=== PATIENT | female | born 1975 | race Caucasian/White ===

== ENCOUNTER 2017-09-27 08:30 | Outpatient (RCR) | payer BC, OTHER, SELFPAY | END 2017-10-14 11:35 | disposition home or self-care (01) | LOC: PT 08:30 | PROVIDERS: PCP Family Medicine; Visit Provider Orthopaedic Surgery | DX: M25.511 Pain in right shoulder (principal); M75.21 Bicipital tendinitis, right shoulder | CPT/HCPCS: 97033; 97035; 97110; 97163 ==

== ENCOUNTER → 2018-01-11 10:51 | Outpatient (CLI) | payer BC, OTHER, SELFPAY ==
[2018-01-11 10:54] LABS: Adenovirus,PCR Not Detected (NotDetected); Bordetella Pertussis Not Detected (NotDetected); Chlamydophila Pneumoniae, PCR Not Detected (NotDetected); Coronavirus 229E Not Detected (NotDetected); Coronavirus NL63 Not Detected (NotDetected); Coronavirus OC43 Not Detected (NotDetected); Coronovirus HKU1,PCR Not Detected (NotDetected); Human Metapneumovirus Not Detected (NotDetected); Influenza A, PCR Not Detected (NotDetected); Influenza AH1, 2009 Not Detected (NotDetected); Influenza AH1, PCR Not Detected (NotDetected); Influenza AH3,PCR Not Detected (NotDetected); Influenza B, PCR Not Detected (NotDetected); Mycoplasma Pneumoniae, PCR Not Detected (NotDetected); Parainfluenza 1, PCR Not Detected (NotDetected); Parainfluenza 2, PCR Not Detected (NotDetected); Parainfluenza 3, PCR Not Detected (NotDetected); Parainfluenza 4, PCR Not Detected (NotDetected); Respiratory Syncytial Virus Not Detected (NotDetected); Rhinovirus/Enterovirus Not Detected (NotDetected)
== END ==
PROVIDERS: PCP Physician Assistant; Visit Provider Physician Assistant
DX: R50.9 Fever, unspecified (principal); R05 Cough; R09.89 Other specified symptoms and signs involving the circulatory and respiratory systems; M79.10 Myalgia, unspecified site
CPT/HCPCS: 87486; 87581; 87633; 87798

== ENCOUNTER → 2018-02-11 16:53 | Outpatient (CLI) | payer BC, OTHER, SELFPAY ==
--- NOTE | 2018-02-11 17:02 | MM_ITS ---
MM Dig screening mamm BI w/CAD ORDERING PHYSICIAN : Baldemar Ivy MD PATIENT AGE: 42 years GENDER: Female COMPARISON: August 2013 prior baseline study only now available INDICATION: ITS.Routine screening: Mammogram. No hormones no new complaints Family history. Maternal, grandmother with breast cancer age 84 TECHNIQUE: Standard CC and MLO images were obtained. R2 CAD reviewed. Additional axillary cc view bilateral included FINDINGS: Dense heterogeneous breast bilaterally, decreased sensitivity mammography. RIGHT BREAST:No significant new findings at the right breast.. Today's MLO view and axillary cc views included a greater portion deep axillary right breast. There are 2 small nodules which are most compatible with intramammary nodes at the margin of the film on these images. Right breast ultrasound should be included with the patient returns LEFT BREAST:Projections are slightly different today but there I would note that there is an area of increased density at the deep superior right left breast labeled X, with this a vague area of density measuring less than 2 cm on MLO view.-It may merely be summation shadow. Questionable density at the central breast on cc view does this does not correspond to the depth is seen on MLO view and this area of density dissipates on axillary cc view dissipates submandibular summation shadow. However given the combination these features I would suggest patient return for CC and MLO 90 degrees spot views of the superior breast at 12 o'clock position to include upper outer quadrant. Other after ultrasound of both breast suggested. IMPRESSION: 1. LEFT BREAST Note area of slightly greater density at the deep superior left breast on today's studies-May merely be summation shadow but would suggest patient return for spot views and ultrasound to further evaluate. 2. RIGHT BREAST Small benign-appearing intramammary nodes noted at deep axillary right breast, are included on today's study & slightly more evident. I believe this merely due to today's positioning and not of significant concern... However would Suggest including ultrasound survey of these lymph nodes and right axilla with patient returns. BI-RADS Category: 0 Need Additional Imaging Evaluation RECOMMENDED FOLLOW-UP: IMM - IMMEDIATE FOLLOW-UP RECOMMENDED Left breast. Spot views . With Bilateral breast ultrasound thereafter (A letter has been sent to the patient regarding results of the study.)
== END ==
PROVIDERS: PCP Family Medicine; Referring Provider Obstetrics & Gynecology; Visit Provider Obstetrics & Gynecology
DX: Z12.31 Encounter for screening mammogram for malignant neoplasm of breast (principal)
CPT/HCPCS: 77067

== ENCOUNTER → 2018-03-04 13:03 | Outpatient (CLI) | payer BC, OTHER, SELFPAY ==
--- NOTE | 2018-03-04 13:05 | MM_ITS ---
MM Dig mamm DX unilat LT CAD, US breast LT complete, US breast RT complete INDICATION: Follow-up abnormal mammogram ORDERING PHYSICIAN: Baldemar Ivy MD PATIENT AGE: 42 years COMPARISON: 02/11/2018, 08/22/2013 TECHNIQUE: Problem-solving views performed of the left breast along with bilateral breast ultrasound FINDINGS: There is a persistent 9 mm nodular opacity in the deep upper aspect of the left breast only well seen on the MLO and ML view and not well seen on the cc view or axillary cc view. There is an additional 6 mm benign-appearing nodular opacity in the lateral aspect of the left breast 3:00 region. Left breast ultrasound: There is a 6 mm cyst at 2:00 near the nipple. There is an additional 8 mm cyst in the deep retroareolar region which may correspond to the nodule noted superiorly within the left breast. In addition, there is a 5 mm cyst at 5:00 near the nipple. No suspicious nodules are evident. Small nodes are present in the axilla. Right breast ultrasound: There are multiple small cysts present in the right breast with a 5 mm cyst behind the nipple and additional 5 mm cyst in the retroareolar region. Small nodes are present in the axilla on both sides. IMPRESSION: Probably benign findings. At least 2 nodules in the left breast on the mammogram which may correspond to cysts. Cysts are present in the right breast as well. Would recommend 6 month mammographic and sonographic follow-up on the left to confirm stability and to ensure the mammographic and sonographic abnormalities correlate BI-RADS Category: 3 Probably Benign Finding Short Term Follow-up RECOMMENDED FOLLOW-UP: 6M - 6 MONTH FOLLOW-UP (A letter has been sent to the patient regarding results of the study.)
== END ==
PROVIDERS: PCP Family Medicine; Visit Provider Obstetrics & Gynecology
DX: R92.8 Other abnormal and inconclusive findings on diagnostic imaging of breast (principal)
CPT/HCPCS: 76641; 77065

== ENCOUNTER → 2018-03-17 16:01 | Outpatient (CLI) | payer BC, OTHER, SELFPAY ==
[2018-03-17 17:58] LABS: HCG Qualitative, Serum Negative (Negative)
[2018-03-17 18:50] LABS: Thyroid Stimulating Hormone 2.14 uIU/ml (0.358-3.740)
[2018-03-21 08:36] LABS: Prolactin 25.3 ng/mL (4.8-23.3)
== END ==
PROVIDERS: Visit Provider Obstetrics & Gynecology
DX: N64.4 Mastodynia (principal)
CPT/HCPCS: 36415; 84146; 84443; 84703

== ENCOUNTER → 2018-03-25 11:58 | Outpatient (CLI) | payer BC, OTHER, SELFPAY ==
[2018-03-29 09:52] LABS: Prolactin 13.4 ng/mL (4.8-23.3)
== END ==
PROVIDERS: Visit Provider Obstetrics & Gynecology
DX: N64.4 Mastodynia (principal)
CPT/HCPCS: 36415; 84146

== ENCOUNTER → 2019-02-14 16:16 | Outpatient (CLI) | payer BC, OTHER, SELFPAY ==
--- NOTE | 2019-02-14 16:26 | XR_ITS ---
PROCEDURE: XR CERVICAL SPINE 5V CLINICAL INDICATION: CERVICAL PAIN COMPARISON: No exams were available for comparison FINDINGS: There is mild reversal of the cervical lordosis. Mild degenerative disc disease is present at C4-C5. No foraminal narrowing. No acute fracture or dislocation. No evidence of cervical rib. IMPRESSION: There is straightening/reversal of the normal lordosis which may be due to patient positioning or muscle spasm. Mild degenerative disc disease C4-C5 Dictated by: Bi Tellez MD 02/14/2019 18:32 Electronically signed by Bi Tellez MD in [place] 02/14/2019 18:32
== END ==
PROVIDERS: PCP Nurse Practitioner Family; Visit Provider Nurse Practitioner Family
DX: M54.2 Cervicalgia (principal)
CPT/HCPCS: 72050

== ENCOUNTER 2019-09-23 16:12 | Emergency (ER) | payer BC, OTHER, SELFPAY ==
[2019-09-23 16:27] VITALS: BMI 28.5
--- NOTE | 2019-09-23 16:27 | XR_ITS ---
PROCEDURE: XR CERVICAL SPINE 5V CLINICAL INDICATION: PAIN COMPARISON: CR XR CERVICAL SPINE 5V from 02/14/2019 FINDINGS: There is straightening of the normal curvature suggesting muscle spasm. C1 through C7 appear intact. Disc spaces are well maintained throughout. Oblique films show normal neural foramina bilaterally. The prevertebral soft tissues are normal and the odontoid is normal. IMPRESSION: Findings of likely muscle spasm similar to the previous exam, no bony abnormality seen Dictated by: Dr. Chucky Bundy MD 09/23/2019 19:47 Dr. Chucky Bundy MD in [place] 09/23/2019 19:47
--- NOTE | 2019-09-23 16:27 | XR_ITS ---
PROCEDURE: XR SHOULDER LT MIN 2V CLINICAL INDICATION: PAIN COMPARISON: No exams were available for comparison FINDINGS: The clavicle is intact and the AC joint appears normal. The humeral head and glenoid are normal. No soft tissue calcifications. IMPRESSION: No acute findings. Dictated by: Dr. Chucky Bundy MD 09/23/2019 19:45 Dr. Chucky Bundy MD in [place] 09/23/2019 19:45
[2019-09-23 16:37] VITALS: BP 124/84; PULSE 88; RESP 20; TEMP 36.9; O2SAT 100; BMI 28.5
--- NOTE | 2019-09-23 17:13 | HMH.EDUTC ---
[facility] – [place] Disposition Clinical Impression: Torticollis Disposition: Home, Self-Care Condition on Discharge: Good Instructions: Torticollis, DI for Torticollis Additional Instructions: Go home and rest. It would be best if you rested tomorrow too. No heavy lifting. No twisting. Take the oral medications as directed. The muscle relaxer (robaxin) will make you drowsy, so don't drive or operate heavy machinery after taking it. Don't start the oral steroids (medrol dose pack) until tomorrow, since you had the shots in here today. Follow up with your regular doctor. GO TO THE ER FOR ANY WORSENING SYMPTOMS OR CONCERN, ESPECIALLY BOWEL OR BLADDER ISSUES, SADDLE AREA NUMBNESS, FEVER, ETC Prescriptions: methylPREDNISolone [Medrol] 4 mg PO DIRECTED 6 Days #21 tab.ds.pk Transmission Status: Received by [facility] #[id number] Methocarbamol [Robaxin 500mg Tab] 500 mg PO BIDP PRN #30 tab PRN Reason: Muscle Spasm Transmission Status: Received by [facility] #[id number] Referrals: Dariela Wilkins APRN [Primary Care Provider] - Time of Disposition: 17:20 Medical Decision Making - Medical Records Medical records reviewed: No: I reviewed the patient's medical records. - Rj Inquiry Pt receiving controlled substance: No Vital Signs: 09/23/19 16:37 09/23/19 17:25 Temperature 98.5 F 98.5 F Temperature Source Oral Pulse Rate 88 Pulse Rate [Right Brachial] 88 Respiratory Rate 20 20 Blood Pressure 124/84 Blood Pressure [Right Arm] 124/84 Blood Pressure Mean [Right Arm] 97 Blood Pressure Source [Right Arm] Automatic Cuff Blood Pressure Position [Right Arm] Sitting 02 Sat by Pulse Oximetry 100 Oxygen Delivery Method Room Air Orders (Tests/Meds): ED MEDICATIONS Discontinued Medications Generic Name Dose Route Start Last Admin Trade Name Freq PRN Reason Stop Dose Admin Ketorolac Tromethamine 60 mg 09/23/19 16:54 09/23/19 17:01 Toradol 60mg/2ml Vial IM 09/23/19 16:55 60 mg ONCE ONE Administration Methylprednisolone Sodium Succinate 125 mg 09/23/19 16:54 09/23/19 17:01 Solu-Medrol 125mg/2ml Vial IM 09/23/19 16:55 125 mg ONCE ONE Administration - Radiology Data #1 Image(s): C-Spine Image Reviewed: Yes I reviewed the patient's radiology image, Yes I have reviewed radiologist's interpretation Preliminary Findings: Abnormal PROCEDURE: XR CERVICAL SPINE 5V CLINICAL INDICATION: PAIN COMPARISON: CR XR CERVICAL SPINE 5V from 02/14/2019 FINDINGS: There is straightening of the normal curvature suggesting muscle spasm. C1 through C7 appear intact. Disc spaces are well maintained throughout. Oblique films show normal neural foramina bilaterally. The prevertebral soft tissues are normal and the odontoid is normal. IMPRESSION: Findings of likely muscle spasm similar to the previous exam, no bony abnormality seen Dictated by: Dr. Chucky Bundy MD 09/23/2019 19:47 Dr. Chucky Bundy MD in [place] 09/23/2019 19:47 #2 Image(s): Shoulder Image Reviewed: Yes I reviewed the patient's radiology image, Yes I have reviewed radiologist's interpretation Preliminary Findings: Normal/NAD PROCEDURE: XR SHOULDER LT MIN 2V CLINICAL INDICATION: PAIN COMPARISON: No exams were available for comparison FINDINGS: The clavicle is intact and the AC joint appears normal. The humeral head and glenoid are normal. No soft tissue calcifications. IMPRESSION: No acute findings. Dictated by: Dr. Chucky Bundy MD 09/23/2019 19:45 Dr. Chucky Bundy MD in [place] 09/23/2019 19:45 [facility] [place] HPI - General Stated complaint: pain on lift side of neck and shoulder Time Seen by Provider: 09/23/19 16:40 Mode of Arrival: Ambulatory Source of Information: Patient Limitations: No Limitations Description of Symptoms (Recalled from Triage Doc. by RN): PATIENT STATES THAT SHE WOKE UP WEDNESDAY WITH NECK PAIN AND STIFFNESS THAT HAS GOTTEN WORSE AND IS NOW
[2019-09-23 17:25] VITALS: BP 124/84; PULSE 88; RESP 20; TEMP 36.9; O2SAT 100
== END 2019-09-23 17:27 | disposition home or self-care (01) ==
PROVIDERS: Emergency Provider Nurse Practitioner Family; PCP Nurse Practitioner Family
DX: M94.0 Chondrocostal junction syndrome [Tietze] (principal); Z90.09 Acquired absence of other part of head and neck; Z88.1 Allergy status to other antibiotic agents; F41.8 Other specified anxiety disorders; Z79.899 Other long term (current) drug therapy
CPT/HCPCS: 72050; 73030; 96372; 99202

== ENCOUNTER 2019-10-16 11:12 | Emergency (ER) | payer BC, OTHER, SELFPAY ==
[2019-10-16 11:21] VITALS: BP 176/94; PULSE 90; RESP 18; O2SAT 99; BMI 28.1
--- NOTE | 2019-10-16 11:39 | CT_ITS ---
PROCEDURE: CT CERVICAL SPINE WO CON CLINICAL INDICATION: pain Neck stiffness COMPARISON: No exams were available for comparison TECHNIQUE: Axial images obtained with sagittal and coronal reformats. All CT scans at the facility use one or more dose reduction, viz: automated exposure control, ma/kV adjustment per patient size (including targeted exams where dose is matched to indication, i.e. head), or iterative reconstruction technique. Axial spiral CT scanning performed of the cervical spine beginning at the base of the skull and continuing to the upper T-spine. 3-D multiplanar reconstruction with 3-D manipulation of volumetric data set in image rendering was completed by the radiologist and/or technologist with the supervision of the radiologist on independent workstation. FINDINGS: There is straightening/reversal of the normal lordosis which may be due to patient positioning or muscle spasm. No fracture or dislocation. No lytic or blastic change C2-C3: Mild left-sided uncovertebral hypertrophy. C3-C4: Minimal left-sided uncovertebral hypertrophy. C4-C5: Mild degenerative disc disease with narrowing of the canal at 10 mm. C5-C6: Mild degenerative disc disease. C6-C7: Unremarkable. C7-T1 and T1-T2: Unremarkable. Scattered small nodes are present in the neck. There is mild nonspecific thickening of the esophagus IMPRESSION: Straightening of cervical lordosis which could be due to position or muscle spasm with mild cervical spondylosis as described above. No acute fracture or dislocation with other nonacute findings as described above Dictated by: Bi Tellez MD 10/16/2019 13:19 Bi Tellez MD in [place] 10/16/2019 13:19
--- NOTE | 2019-10-16 13:11 | HMH.EDGENADL ---
ED Disposition Clinical Impression: Cervical paraspinal muscle spasm Disposition: Home, Self-Care Condition on Discharge: Good Instructions: DI for Torticollis Prescriptions: Ibuprofen [Ibuprofen 800mg Tablet] 800 mg PO TIDP PRN #20 tab PRN Reason: Moderate Pain Transmission Status: Pending to [facility] # methocarbamoL [Robaxin 750mg Tab] 750 mg PO TID 10 Days #30 tab Transmission Status: Pending to [facility] # Referrals: Dariela Wilkins APRN [Primary Care Provider] - - Critical Care Critical Care Time: No Attestation: On 10/16/19, the high probability of a clinically significant, sudden or life threatening deterioration of the following system(s) required my full and direct attention, intervention and personal management. The time I documented below is in addition to time spent performing reported procedures but includes the following listed in this critical care notation. Medical Decision Making - Medical Records Medical records reviewed: Yes: I reviewed the patient's medical records. - Rj Inquiry Pt receiving controlled substance: No Vital Signs: 10/16/19 11:21 Pulse Rate [Radial] 90 Respiratory Rate 18 Blood Pressure [Right Arm] 176/94 H Blood Pressure Mean [Right Arm] 121 Blood Pressure Source [Right Arm] Automatic Cuff Blood Pressure Position [Right Arm] Sitting 02 Sat by Pulse Oximetry 99 Oxygen Delivery Method Room Air Orders (Tests/Meds): ED MEDICATIONS Discontinued Medications Generic Name Dose Route Start Last Admin Trade Name Freq PRN Reason Stop Dose Admin Ibuprofen 800 mg 10/16/19 11:39 10/16/19 11:49 Motrin 400mg Tablet PO 10/16/19 11:40 Not Given ONCE ONE Ibuprofen 600 mg 10/16/19 11:48 10/16/19 11:49 Motrin 600mg Tablet PO 10/16/19 11:49 600 mg ONCE ONE Administration Methocarbamol 750 mg 10/16/19 11:39 10/16/19 11:50 Methocarbamol 500mg Tablet PO 10/16/19 11:40 750 mg ONCE ONE Administration - CT Data CT Scan: C-Spine Time Received: 13:25 Findings Narrative: IMPRESSION: Straightening of cervical lordosis which could be due to position or muscle spasm with mild cervical spondylosis as described above. No acute fracture or dislocation with other nonacute findings as described above - Reevaluation(s) Time: 13:25 Reevaluation #1: On reevaluation, patient is feeling much better. She does have CT findings consistent with cervical spasm. Patient will be given medications for the next few days. She was instructed to rest. Given strict return precautions. Verbalized understanding. Medical Decision Narrative: This is a 44-year-old female presented to the emergency department with neck pain. Patient's findings are consistent with cervical spasm. Imaging will be obtained. General Adult HPI - General Chief complaint: PAIN Stated complaint: stiff neck muscle spasm Time Seen by Provider: 10/16/19 11:25 Mode of Arrival: Ambulatory Limitations: No Limitations Description of Symptoms (Recalled from ER Triage Doc. by RN): Per patient she had neck pain and muscle spasms back in [facility]. states they did xrays then and it showed muscles spasms and nothing else. Did steroids then and it got better. Happened again a few months ago and she again did steroids. Currently having another flare up. - History of Present Illness HPI narrative: This is a 44-year-old female presented to the emergency department with neck pain. Patient states that she has a history of chronic neck spasms. 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 Patient states that a few days ago she was lifting something when she felt some pain in the back of her neck. Is located on both sides. Radiates down into her back. It is dull in nature. She states that she cannot fully turn her head because her neck is stiff and in pain. She denies any fevers or chills. No direct trauma. She does not have any
[2019-10-16 13:48] VITALS: BP 176/94; PULSE 90; RESP 18; TEMP 36.7; O2SAT 99
== END 2019-10-16 13:49 | disposition home or self-care (01) ==
PROVIDERS: Emergency Provider Emergency Medicine; PCP Nurse Practitioner Family
DX: M62.838 Other muscle spasm (principal); M54.2 Cervicalgia
CPT/HCPCS: 72125; 99281

== ENCOUNTER → 2019-12-11 10:31 | Outpatient (CLI) | payer BC, OTHER, SELFPAY | PROVIDERS: PCP Nurse Practitioner Family; Visit Provider Nurse Practitioner Family | DX: Z03.818 Encounter for observation for suspected exposure to other biological agents ruled out (principal); R50.9 Fever, unspecified | CPT/HCPCS: U0003 ==

== ENCOUNTER 2020-01-06 14:10 | Emergency (ER) | payer BC, OTHER, SELFPAY ==
[2020-01-06 14:23] VITALS: BP 144/94; PULSE 97; RESP 20; TEMP 36.7; O2SAT 98; BMI 29.0
--- NOTE | 2020-01-06 14:35 | HMH.EDUTC ---
[facility] [place] Clinical Impression: Encounter for laboratory testing for COVID-19 virus URI (upper respiratory infection) Qualifiers: URI type: unspecified URI Qualified Code(s): J06.9 - Acute upper respiratory infection, unspecified Disposition: Home, Self-Care Condition on Discharge: Good Instructions: Preventing the Spread of Coronavirus Discharge Instructions, DI for Sinusitis, Albuterol Oral Inhalation Additional Instructions: *Monitor Temp, Over the counter Motrin or Tylenol as directed/as needed Tylenol every 4 hours and Motrin every 6 hours (as long as your family doctor has told you that you can take it) for fever or pain. and straight to ER if unable to lower temp less than 101.0 after medication given *Warm salt water gargles may help to soothe the throat *Throat Lozenges *Warm fluids like tea with honey may help to soothe the throat *Sleep elevated *Humidifier/Vaporizer *Flonase 2 sprays in each nostril daily but be aware that it may take 2-3 days before you notice improvement Follow up IMMEDIATELY for new or worsening symptoms or no Noticeable improvement over the next 48-72 hours. 911 for difficulty breathing or swallowing You was tested for today for COVID19 your test result should be back in the next 24-48 hours, you may call to the [facility] later today or tomorrow to see if your test results are back and the result [phone] [facility] hours are 9am-9pm You was given a handout with instructions for Self Quarantine and Self isolation for while you wait on test results and what to do if they are positive If you are positive the Health Dept will be contacting you also Prescriptions: Albuterol Sulfate [Proventil-HFA 90mcg/puff Inh] 1 - 2 puffs IH Q4HP PRN #1 inh PRN Reason: Shortness Of Breath Transmission Status: Pending to [facility] # Fluticasone Propionate [Flonase 50mcg nasal spray 16gm] 1 spr NS DAILY #1 bottle Transmission Status: Pending to [facility] # Azithromycin [Zithromax 250mg tab] 250 mg PO DIRECTED #6 tab Transmission Status: Pending to [facility] # Referrals: Dariela Wilkins APRN [Primary Care Provider] - As needed Forms: Work/School Release Time of Disposition: 14:48 Medical Decision Making - Rj Inquiry Pt receiving controlled substance: No Rj was queried for this patient: No Vital Signs: 01/06/20 14:23 Temperature 98.1 F Temperature Source Oral Pulse Rate [Radial] 97 H Respiratory Rate 20 Blood Pressure [Right Arm] 144/94 H Blood Pressure Mean [Right Arm] 110 Blood Pressure Source [Right Arm] Automatic Cuff Blood Pressure Position [Right Arm] Sitting 02 Sat by Pulse Oximetry 98 Oxygen Delivery Method Room Air Orders (Tests/Meds): ORDERS Category Date Time Status Covid-19 Nasal PCR ([facility]) Routine Lab 01/06/20 14:27 Received [facility] [place] - General Stated complaint: covid test Time Seen by Provider: 01/06/20 14:35 Mode of Arrival: Ambulatory Source of Information: Patient Limitations: No Limitations Description of Symptoms (Recalled from Triage Doc. by RN): headache, muscle ache, sore throat, hurts in chest and cough HEENT Symptoms (Recalled from RN notes): Yes Resp Symptoms (Recalled from RN notes): No Skin Symptoms (Recalled from RN notes): No MS Symptoms (Recalled from RN notes): No Functional Status (Recalled from RN notes): wnl - History of Present Illness Provider Complaint: Patient state that her daughter recently had strep and she was also exposed to COVID by her brother in law State that she has been having sinus pain and pressure along with sore throat and body aches. States that today she was feeling worse so she come in to get checked - Related Data Home Medications Medication Instructions Recorded Confirmed bupropion HCl 75 mg tablet 75 mg PO BID tab 11/30/19 methocarbamol 750 mg tablet 750 mg PO TID tab 11/30/19 Previous Rx's Medication Instructions Recorded Albutero
[2020-01-06 15:03] VITALS: BP 144/94; PULSE 97; RESP 20; TEMP 36.7; O2SAT 98
--- NOTE | 2020-01-06 17:56 | PC.NURSE ---
Patient notified of positive covid results. educated on quarantine.
== END 2020-01-06 15:04 | disposition home or self-care (01) ==
PROVIDERS: Emergency Provider Nurse Practitioner; PCP Nurse Practitioner Family
DX: U07.1 COVID-19 (principal)
CPT/HCPCS: 99201; U0003

== ENCOUNTER 2020-03-15 18:16 | Emergency (ER) | payer BC, OTHER, SELFPAY ==
[2020-03-15 18:36] VITALS: BP 152/104; PULSE 89; RESP 16; TEMP 37.1; O2SAT 100; BMI 28.1
--- NOTE | 2020-03-15 18:44 | XR_ITS ---
PROCEDURE: XR TIBIA FIBULA LT 2V CLINICAL INDICATION: FALL Pain COMPARISON: CR XR KNEE LT 3V from 03/15/2020 FINDINGS: No fracture or dislocation. No lytic or blastic change. There is normal mineralization. The joint spaces are well-preserved. No significant degenerative/arthritic changes. No erosive changes evident. Other findings:There is a small suprapatellar effusion. IMPRESSION: Small knee joint effusion otherwise negative Dictated by: Bi Tellez MD 03/16/2020 08:09 Bi Tellez MD in [place] 03/16/2020 08:09
--- NOTE | 2020-03-15 18:56 | HMH.EDUTC ---
[facility] – [place] Disposition Clinical Impression: Left knee sprain Qualifiers: Encounter type: initial encounter Involved ligament of knee: other ligament Qualified Code(s): S83.8X2A - Sprain of other specified parts of left knee, initial encounter Disposition: Home, Self-Care Condition on Discharge: Good Instructions: How to Use Crutches, How To Perform RICE (Rest, Ice, Compress, Elevate), How to Use a Knee Immobilizer Additional Instructions: *No weight bearing Use crutches to ambulate *RICE, Rest the extremity, Ice 15-20 minutes 3-4 times daily, Compress- wear the jose david wrap as discussed as much as possible to help reduce swelling and pain, Elevate the extremity when at rest *Jose David wrap/knee immobilizer is for support and help control swelling, use it except in the shower. Be sure that is not to tight but not to loose either *Elevate when resting *Ibuprofen as prescribed every 8 hours as needed for pain an inflammation. If need something more can take Tylenol in between doses of Ibuprofen to help Immediately follow up with your family doctor for new or worsening of symptoms, or no noticeable improvement over the next 3-[address] Chang office on Wednesday for appointment Return if needed Straight to ER if any life threatening symptoms Prescriptions: Ibuprofen [Ibuprofen 800mg Tablet] 800 mg PO TIDP PRN #20 tab PRN Reason: Moderate Pain Transmission Status: Sent to [facility] Referrals: Dariela Wilkins APRN [Primary Care Provider] - As needed Sudhakar Chang MD [Staff Physician] - (Call office for appointment on Wednesday) Time of Disposition: 19:30 Medical Decision Making - Rj Inquiry Pt receiving controlled substance: No Rj was queried for this patient: No Vital Signs: 03/15/20 18:36 Temperature 98.8 F Temperature Source Oral Pulse Rate [Right] 89 Respiratory Rate 16 Blood Pressure [Right Arm] 152/104 H Blood Pressure Mean [Right Arm] 120 Blood Pressure Source [Right Arm] Automatic Cuff Blood Pressure Position [Right Arm] Sitting 02 Sat by Pulse Oximetry 100 Oxygen Delivery Method Room Air Orders (Tests/Meds): ORDERS Category Date Time Status Fibula/tibia XR left 2 views [XR tibia fibula LT 2V] Exams 03/15/20 18:44 Taken Stat XR knee LT 3V Stat Exams 03/15/20 18:44 Taken - Radiology Data #1 Image(s): Knee Image Reviewed: Yes I reviewed the patient's radiology image Preliminary Findings: No Fracture Seen #2 Image(s): Tib/Fib Image Reviewed: Yes I reviewed the patient's radiology image Preliminary Findings: No Fracture Seen - Physician Consults Physician Consulted: Bernardo Time: 19:25 Reason -: Orthopedic Eval/Care Comment/Response: Spoke with Dr Chang and he advised knee immobilizer, RICE, crutches and have her call the office for appointment on Wednesday [facility] [place] HPI - General Stated complaint: [id number] injured left leg Time Seen by Provider: 03/15/20 18:56 Mode of Arrival: Wheelchair Source of Information: Patient Limitations: No Limitations Description of Symptoms (Recalled from Triage Doc. by RN): pt states she fell from a wagon and landed on her left leg. shes complaining of pain from the back of her knee down to her briceno. HEENT Symptoms (Recalled from RN notes): No Resp Symptoms (Recalled from RN notes): No Skin Symptoms (Recalled from RN notes): No MS Symptoms (Recalled from RN notes): Yes Functional Status (Recalled from RN notes): na - History of Present Illness Provider Complaint: Patient states that she was on a ladder at home feeding the goats when it slipped and she fell off the ladder and landed on her left leg and felt like something tore in the back of her knee States that ever since she has been having pain in the back of the knee and uanable to raise her leg without using her hands. due to pain - Related Data Home Medications Medication Instructions Recorded Confirmed bupropion HCl 75 mg tablet 75 mg PO BID tab 11/30/19 methocarbamol 7
[2020-03-15 20:11] VITALS: BP 135/86; PULSE 86; RESP 16; TEMP 36.7
== END 2020-03-15 20:00 | disposition home or self-care (01) ==
PROVIDERS: Emergency Provider Nurse Practitioner; PCP Nurse Practitioner Family
DX: S83.8X2A Sprain of other specified parts of left knee, initial encounter (principal); W11.XXXA Fall on and from ladder, initial encounter; Y92.71 Barn as the place of occurrence of the external cause
CPT/HCPCS: 29505; 73562; 73590; 99202; G0463

== ENCOUNTER → 2020-04-04 12:52 | Outpatient (CLI) | payer BC, OTHER, SELFPAY ==
--- NOTE | 2020-04-04 12:52 | MR_ITS ---
PROCEDURE: MR KNEE LT WO CON CLINICAL INDICATION: evaluate for a meniscal tear Stepped down from wagon and pt states she heard and felt a pop. Posterior and lateral knee pain with pain puperior to patella x3wks. Swelling superior to patella. Prior X-ray 03-15-20 COMPARISON: CR XR KNEE LT 3V from 03/15/2020 TECHNIQUE: Routine multiplanar multi echo sequences are performed without gadolinium enhancement. FINDINGS: There is diffuse ill definition of the superior aspect of the ACL consistent with ACL tear or severe sprain. The PCL is intact. The collateral ligaments appear intact. No meniscal tear is apparent. The patellar tendon and quadriceps tendon appear intact. There is a small knee joint effusion. There is diffuse increased T2 signal involving the lateral tibial plateau posteriorly also with increased T2 signal involving the posterior aspect of the medial tibial plateau. Sagittal images suggest a nondisplaced fracture involving the posterior aspect of the lateral tibial plateau this is best demonstrated on series 7, image 18. There is diffuse bone bruise at this region. There is a small knee joint effusion. There is diffuse subcutaneous edema about the knee. The patellar cartilage is well preserved. IMPRESSION: 1. Ill definition with slight increased signal involving the superior aspect of the ACL consistent with ACL tear. 2. Bone bruise of the lateral tibial plateau with nondisplaced L-shaped fracture of the lateral tibial plateau posteriorly. There may be some minimal depression of this fracture fragment 3. Knee joint effusion with smaller bone bruise of the medial tibial plateau with diffuse subcutaneous edema about the knee Dictated by: Bi Tellez MD 04/07/2020 12:01 Bi Tellez MD in [place] 04/07/2020 12:01
== END ==
PROVIDERS: PCP Nurse Practitioner Family; Visit Provider Orthopaedic Surgery
DX: M25.562 Pain in left knee (principal)
CPT/HCPCS: 73721

== ENCOUNTER → 2020-04-15 12:14 | Outpatient (CLI) | payer BC, OTHER, SELFPAY | PROVIDERS: PCP Nurse Practitioner Family; Visit Provider Student in an Organized Health Care Education/Training Program | DX: Z01.818 Encounter for other preprocedural examination (principal); Z20.822 Contact with and (suspected) exposure to COVID-19; S83.519A Sprain of anterior cruciate ligament of unspecified knee, initial encounter | CPT/HCPCS: U0003 ==

== ENCOUNTER 2020-09-17 16:00 | Outpatient (RCR) | payer BC, OTHER, SELFPAY | END 2020-09-17 17:00 | disposition home or self-care (01) | LOC: PT.CARL 16:00 | PROVIDERS: PCP Nurse Practitioner Family; Visit Provider Student in an Organized Health Care Education/Training Program | DX: S83.512A Sprain of anterior cruciate ligament of left knee, initial encounter (principal) | CPT/HCPCS: 97010; 97014; 97110; 97112; 97116; 97140; 97163; 97164; G0283 ==

== ENCOUNTER → 2021-02-12 16:37 | Outpatient (CLI) | payer BC, OTHER, SELFPAY ==
[2021-02-12 17:20] LABS: Basophils # 0.1 K/mm3 (0-0.2); Basophils % 0.8 % (0.1-2.0); Eosinophils # 0.1 K/mm3 (0.0-0.4); Eosinophils % 0.9 % (0.1-12.0); Hemoglobin 11.7 g/dL (12.2-16.2); Lymphocytes # 2.7 K/mm3 (0.7-4.5); Lymphocytes % 40.1 % (10-50); Mean Corpuscular HGB Conc 32.4 g/dL (31.8-35.4); Mean Corpuscular Hemoglobin 26.5 pg (27.0-31.2); Mean Corpuscular Volume 81.6 fl (81-99); Mean Platelet Volume 8.3 fl (7.4-10.4); Monocytes # 0.4 K/mm3 (0.1-1.0); Monocytes % 5.9 % (1.7-9.3); Neutrophils # 3.5 K/mm3 (1.8-7.8); Neutrophils % 52.3 % (37.0-80.0); Platelet Count 218 K/mm3 (142-424); Red Blood Count 4.41 M/mm3 (4.20-5.40); Red Cell Distribution Width 15.6 % (11.5-17.5); White Blood Count 6.7 K/mm3 (4.8-10.8)
[2021-02-12 17:53] LABS: Chloride 103 mmol/L (98-107); Sodium 138 mmol/L (136-145)
[2021-02-12 17:56] LABS: Alanine Aminotransferase 19 U/L (12-78); Alkaline Phosphatase 52 U/L (38-126); Aspartate Amino Transferase 19 U/L (14-36); Bilirubin,Total 0.4 mg/dl (0.2-1.3); Blood Urea Nitrogen 13 mg/dl (7-17); Carbon Dioxide 24 mmol/L (22.0-30.0); Estimated Glomerular Filt Rate 109 ml/min (>60); GFR (African American) 131 ML/MIN (>60)
[2021-02-12 17:57] LABS: Albumin Level 4.4 g/dl (3.5-5.0); Albumin/Globulin Ratio 1.6 (1.1-1.8); Calcium 9.3 mg/dl (8.4-10.2); Globulin 2.8 g/dL (1.3-3.2); Glucose 91 mg/dl (74-100); Iron 48 ug/dL (37-170); Total Protein,Serum 7.2 g/dl (6.3-8.2)
[2021-02-12 18:12] LABS: Total Iron Binding Capacity 493 ug/dL (265-497)
[2021-02-12 18:15] LABS: Free Thyroxine Index 2.3 ug/dL (5.93-13.13); T4 (Thyroxine) 8.6 ug/dl (5.53-11.0); Triiodothryronine (T3) Uptake 27 % (23.5-40.5)
[2021-02-12 18:29] LABS: Thyroid Stimulating Hormone 2.72 uIU/mL (0.465-4.68)
[2021-02-12 18:31] LABS: Ferritin 5.76 ng/ml (6.24-137)
== END ==
PROVIDERS: Visit Provider Nurse Practitioner Family
DX: D50.0 Iron deficiency anemia secondary to blood loss (chronic) (principal); R53.83 Other fatigue
CPT/HCPCS: 36415; 80053; 82728; 83540; 83550; 84436; 84443; 84479; 85025

== ENCOUNTER 2021-02-15 15:24 | Emergency (ER) | payer BC, OTHER, SELFPAY ==
[2021-02-15 17:40] VITALS: BP 132/89; PULSE 86; RESP 18; TEMP 37.9; O2SAT 99; BMI 28.5
[2021-02-15 17:58] LABS: UTC Influenza A Antigen Negative (Negative); UTC Influenza B Antigen Negative (Negative)
--- NOTE | 2021-02-15 18:07 | HMH.EDUTC ---
[facility] [place] Disposition Clinical Impression: Viral syndrome Disposition: Home, Self-Care Condition on Discharge: Good Instructions: DI for Viral Syndrome, DI for COVID-19 (Suspected or Confirmed ), Preventing the Spread of Coronavirus Discharge Instructions Additional Instructions: *Monitor Temp, Over the counter Motrin or Tylenol as directed/as needed Tylenol every 4 hours and Motrin every 6 hours (as long as your family doctor has told you that you can take it) for fever or pain. and straight to ER if unable to lower temp less than 101.0 after medication given *Warm salt water gargles may help to soothe the throat *Throat Lozenges *Warm fluids like tea with honey may help to soothe the throat *Sleep elevated *Humidifier/Vaporizer Follow up IMMEDIATELY for new or worsening symptoms or no Noticeable improvement over the next 48-72 hours. 911 for difficulty breathing or swallowing You were tested for today for COVID19 your test result should be back in the next 24-48 hours, you may check your results on the [facility] Portal if you have trouble logging on you may call You was given a handout with instructions for Self Quarantine and Self isolation for while you wait on test results and what to do if they are positive If you are positive the Health Dept will be contacting you also Make sure to take your Vitamins Vit. C Vit D and Zinc if you can take them Referrals: Dariela Wilkins APRN [Primary Care Provider] - As needed Forms: Work/School Release Time of Disposition: 18:13 Medical Decision Making - Rj Inquiry Pt receiving controlled substance: No Rj was queried for this patient: No Vital Signs: 02/15/21 17:40 Temperature 100.3 F H Temperature Source Oral Pulse Rate [Right Brachial] 86 Respiratory Rate 18 Blood Pressure [Right Arm] 132/89 Blood Pressure Mean [Right Arm] 103 Blood Pressure Source [Right Arm] Automatic Cuff Blood Pressure Position [Right Arm] Sitting 02 Sat by Pulse Oximetry 99 Oxygen Delivery Method Room Air - Lab Data Lab results reviewed: Yes: I reviewed the patient's lab results. Lab Results 02/15/21 17:43: Influenza Type A Ag Negative, Influenza Type B Ag Negative Orders (Tests/Meds): ORDERS Category Date Time Status Covid-19 Nasal PCR ([facility]) Routine Lab 01/08/22 17:40 Received [facility] [place] HPI - General Stated complaint: covid symptoms Time Seen by Provider: 02/15/21 18:07 Mode of Arrival: Ambulatory Source of Information: Patient Limitations: No Limitations Description of Symptoms (Recalled from Triage Doc. 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 State that now she feels like she has the flu States that she is having fever, chills, body aches and headache that started yesterday State that she was worried that she may have COVID so she came in to get checked - Related Data Home Medications Medication Instructions Recorded Confirmed bupropion HCl 100 mg tablet 100 mg PO BID 02/13/21 02/15/21 hydrOXYzine HCL [Hydroxyzine HCl] 25 mg PO HSP PRN 02/15/21 02/15/21 Allergies Allergy/AdvReac Type Severity Reaction Status Date / Time levofloxacin [From Levaquin] Allergy Mild rash Verified 02/13/21 11:24 - Worker's Comp Is this a Worker's Comp case?: No [facility] History - Hepatitis A Screen Drug use history?: No High risk sexual behaviors?: No History of sexually transmitted infection?: No Currently employed?: No Childcare worker?: No Do you have indoor plumbing?: Yes Do you have electricity?: Yes Attestation statement:: This patient has been screened for Hepatitis
[2021-02-15 18:16] VITALS: BP 132/89; PULSE 86; RESP 18; TEMP 37.9; O2SAT 99
== END 2021-02-15 18:18 | disposition home or self-care (01) ==
PROVIDERS: Emergency Provider Nurse Practitioner; PCP Nurse Practitioner Family
DX: B34.9 Viral infection, unspecified (principal); F41.9 Anxiety disorder, unspecified
CPT/HCPCS: 87804; 99202; C9803; G0463; U0003; U0005

== ENCOUNTER → 2021-03-07 15:12 | Outpatient (CLI) | payer BC, OTHER, SELFPAY ==
--- NOTE | 2021-03-07 15:12 | US_ITS ---
FINAL REPORT CLINICAL HISTORY: abnormal bleeding FINDINGS: Transvaginal sonographic images of the pelvis were obtained. The uterus is retroverted and measures 9.3 x 3.3 x 5.2 cm. The endometrium measures 7 mm, which is within normal limits. No uterine mass is identified. The right ovary measures 3.6 cm in length and left ovary measures 2.5 cm in length. Normal blood flow seen to the ovaries. There is no evidence of free fluid. IMPRESSION: Retroverted uterus. No acute abnormality identified. Reviewed, Interpreted and Dictated by Cristhian Boston MD Transcribed by Joann Kenny Authenticated by Cristhian Boston MD on 03/07/2021 04:26:27 PM [facility]
== END ==
PROVIDERS: PCP Nurse Practitioner Family; Visit Provider Obstetrics & Gynecology
DX: N93.9 Abnormal uterine and vaginal bleeding, unspecified (principal)
CPT/HCPCS: 76830

== ENCOUNTER → 2021-03-22 10:24 | Outpatient (CLI) | payer BC, OTHER, SELFPAY ==
--- NOTE | 2021-03-22 | XR_ITS ---
PROCEDURE INFORMATION: Exam: XR Chest Exam date and time: 03/22/2021 12:00 AM Age: 45 years old Clinical indication: Screening exam; Other screening; Additional info: Tb screening TECHNIQUE: Imaging protocol: XR of the chest. Views: 2 views. COMPARISON: CT CERVICAL SPINE WO CON 10/16/2019 12:04 PM FINDINGS: Lungs: There is no evidence of acute tuberculosis. No focal consolidation Pleural spaces: Unremarkable. No pleural effusion. No pneumothorax. Heart/Mediastinum: Unremarkable. No cardiomegaly. Bones/joints: Unremarkable. IMPRESSION: There is no evidence of acute tuberculosis.
== END ==
LOC: LAB 10:25 → RAD 10:26
PROVIDERS: PCP Nurse Practitioner Family; Visit Provider Nurse Practitioner Family
DX: Z11.1 Encounter for screening for respiratory tuberculosis (principal)
CPT/HCPCS: 71046

== ENCOUNTER → 2021-04-01 17:17 | Outpatient (CLI) | payer BC, OTHER, SELFPAY ==
[2021-04-01 18:28] LABS: Basophils # 0.1 K/mm3 (0-0.2); Basophils % 1.5 % (0.1-2.0); Eosinophils % 0.6 % (0.1-12.0); Hematocrit 38.3 % (37.0-47.0); Hemoglobin 11.9 g/dL (12.2-16.2); Lymphocytes # 2.5 K/mm3 (0.7-4.5); Lymphocytes % 36.6 % (10-50); Mean Corpuscular HGB Conc 31.1 g/dL (31.8-35.4); Mean Corpuscular Hemoglobin 25.8 pg (27.0-31.2); Mean Platelet Volume 8.5 fl (7.4-10.4); Monocytes # 0.5 K/mm3 (0.1-1.0); Monocytes % 6.7 % (1.7-9.3); Neutrophils # 3.7 K/mm3 (1.8-7.8); Neutrophils % 54.5 % (37.0-80.0); Platelet Count 221 K/mm3 (142-424); Red Blood Count 4.61 M/mm3 (4.20-5.40); Red Cell Distribution Width 15.6 % (11.5-17.5); White Blood Count 6.7 K/mm3 (4.8-10.8)
[2021-04-01 18:34] LABS: Chloride 98 mmol/L (98-107)
[2021-04-01 18:35] LABS: Potassium 3.9 mmoL/L (3.5-5.1); Sodium 133 mmol/L (136-145)
[2021-04-01 18:37] LABS: Alanine Aminotransferase 12 U/L (12-78); Aspartate Amino Transferase 22 U/L (14-36); Blood Urea Nitrogen 13 mg/dl (7-17); Estimated Glomerular Filt Rate 78 ml/min (>60); GFR (African American) 94 ML/MIN (>60)
[2021-04-01 18:38] LABS: Albumin Level 4.4 g/dl (3.5-5.0); Albumin/Globulin Ratio 1.7 (1.1-1.8); Alkaline Phosphatase 63 U/L (38-126); Anion Gap 11.9 mEq/L (5-15); Bilirubin,Total 0.3 mg/dl (0.2-1.3); Calcium 8.4 mg/dl (8.4-10.2); Carbon Dioxide 27 mmol/L (22.0-30.0); Globulin 2.6 g/dL (1.3-3.2); Glucose 66 mg/dl (74-100)
[2021-04-01 18:42] LABS: Urine Pregnancy, HCG Qual. Negative (Negative)
== END ==
PROVIDERS: PCP Obstetrics & Gynecology; Visit Provider Obstetrics & Gynecology
DX: Z01.812 Encounter for preprocedural laboratory examination (principal); N92.0 Excessive and frequent menstruation with regular cycle
CPT/HCPCS: 80053; 81025; 85025

== ENCOUNTER 2021-04-03 06:35 | Day surgery (SDC) | payer BC, OTHER, SELFPAY ==
[2021-04-03] VITALS (10 sets, daily range): BP systolic 93–149; BP diastolic 63–91; PULSE 69–88; RESP 12–18; TEMP 36.4–36.6; O2SAT 96–100
[2021-04-03 06:52] LABS: Coronavirus 19, PCR Not Detected (NotDetected); Influenza A, PCR Not Detected (NotDetected); Influenza B, PCR Not Detected (NotDetected)
--- NOTE | 2021-04-03 07:11 | HMH.ANESCL ---
[facility] Anesthesia Checklist - Patient Identification Patient Identification: Arm Band - Structural Data Admitted From: Home Planned Operative Procedure/s: Hyst/ D & C Consent for Planned Operative Procedure(s) Verified: Yes - NPO Status Verified Time NPO: 00:00 - Additional verifications Anesthesia Reactions: No Hx Blood Transfusions: No Blood Transfusion Reaction: No - Airway Assessment C-Spine Mobility Assessed: Yes TMJ Mobility Assessed: Yes Dentition: Good Dentition - Neurological Assessment Level of Consciousness: Awake Hx Seizures: No Numbness or tingling in extremities: No - Anesthesia Plan Anesthesia Risk discussed: Yes Anesthesia Plan: Verified ASA Class: I Anesthesia Type: General [facility] History I have reviewed the patient's past medical history: Yes Medical History: Reports:: Anxiety Denies:: Cancer, Diabetes Mellitus Type 1, Diabetes Mellitus Type 2, Internal Pacemaker, MRSA, Seizures *Have you ever received a pneumonia vaccine?: No *Have you received a flu vaccine this season?: No Other Medical History: Denies: Blood Transfusion Reaction Anesthesia experience/problems:: None Laterality Cases: Bilateral: Tonsillectomy Other Surgeries: Yes: , Dilation and Curettage. No: Pacemaker Amputation: No Fractures: No - *Social History Last grade of school completed: Advanced degree Smoking Status: Never smoker Alcohol Intake: never Alcohol Intake Frequency:: other Substance Use Type: denies use *Occupational Status:: employed Housing: house *Travel in the last 8 weeks: None - Psychiatric History Pschychiatric History:: Reports:: Anxiety Family Hx:: Cancer, Hypertension, Diabetes, Stroke
--- NOTE | 2021-04-03 09:01 | HMH.ANESI ---
[facility] Anesthesia Record Part I Intake, IV Amount: 300 Estimated blood loss (mL): 0 Urine output (mL): 0 Blood Pressure: 93/72 SaO2: 96 Pulse Rate: 78 Respiratory Rate: 12 Temperature: 97.6 F Patient is:: Drowsy, Oral/Nasal airway Stable to PACU at:: 09:01
--- NOTE | 2021-04-03 13:08 | HMH.OPNOTE ---
Date of procedure: 04/03/21 Pre-op Diagnosis:: 1. Heavy Menstrual Bleeding 2. Severe Dysmenorrhea 3. Anemia secondary to chronic blood loss Post-op Diagnosis:: same Procedure performed:: D&C Hysteroscopy Novasure Endometrial Ablation Surgeon:: Maryam Abreu MD OVER SHORT AND DAMAGE CLERK:: Trudy Neri Anesthesia: GETA Estimated blood loss (mL): 5 Operative findings:: grossly normal uterine cavity No polyps or submucosal fibroids identified Operative note:: The patient was taken to the OR where general anesthesia was administered without difficulty. She was prepped/draped in the normal sterile fashion in supine position. The cervix was dilated until hysteroscope could be accomodated. The hysteroscope was introduced through the cervix into the uterus and the cavity surveyed. No abnormalities were observed within the cavity. The hysteroscope was removed and sharp curettage performed over the uterine cavity. The specimen was sent for pathology. The Novasure device was introduced into the uterus. The cavity length was measured at 5cm and width at 3.1cm, and the cavity assessment was successful. The Novasure was deployed and the endometrial ablation was completed in 74seconds, and without complication. All instruments were removed from her vagina, she was awakened from anesthesia and taken to PACU in stable condition. Condition: stable Disposition: PACU Specimens:: endometrial curettings Complications:: none
[2021-04-07 09:17] VITALS: BP 138/91; PULSE 82; TEMP 36.4
--- NOTE | 2021-04-07 09:17 | P.PN_ITS ---
[facility] Anesthesia Record Part II Discharge Time: 09:41 Destination: [facility] PACU nurse assessment reviewed?: Yes Patient Condition:: Good Anesthesia Complications:: None Swallowing reflex intact?: Yes Cyanosis?: No Blood Pressure: 138/91 Pulse Rate: 82 Temperature: 97.5 F Mental Status: Alert & Oriented Pain level:: 0 Nausea and/or vomitting:: None Intake, IV Amount: 300
== END 2021-04-03 10:51 | disposition home or self-care (01) ==
LOC: OR 06:37
PROVIDERS: PCP Nurse Practitioner Family; Visit Provider Obstetrics & Gynecology
PROC: (CPT 58563; principal; 2021-04-03 08:00)
DX: Z98.51 Tubal ligation status (principal); N92.0 Excessive and frequent menstruation with regular cycle; D50.0 Iron deficiency anemia secondary to blood loss (chronic); F41.9 Anxiety disorder, unspecified; Z82.3 Family history of stroke; Z80.9 Family history of malignant neoplasm, unspecified; Z83.3 Family history of diabetes mellitus; Z82.49 Family history of ischemic heart disease and other diseases of the circulatory system
CPT/HCPCS: 58563; 96374; C9803; J2405; U0003; U0005

== ENCOUNTER 2021-06-16 11:53 | Emergency (ER) | payer BC, OTHER, SELFPAY ==
[2021-06-16 12:37] LABS: Strep Scrn Group A (Rapid) Negative (Negative)
[2021-06-16 12:40] VITALS: BP 128/91; PULSE 79; RESP 21; TEMP 37.2; O2SAT 98; BMI 27.5
--- NOTE | 2021-06-16 13:07 | HMH.EDUTC ---
[facility] [place] Disposition Clinical Impression: URI (upper respiratory infection) Qualifiers: URI type: unspecified URI Qualified Code(s): J06.9 - Acute upper respiratory infection, unspecified Disposition: Home, Self-Care Condition on Discharge: Good Instructions: Sore Throat, Azithromycin, Methylprednisolone Additional Instructions: *Monitor Temp, Over the counter Motrin or Tylenol as directed/as needed Tylenol every 4 hours and Motrin every 6 hours (as long as your family doctor has told you that you can take it) for fever or pain. and straight to ER if unable to lower temp less than 101.0 after medication given *Warm salt water gargles may help to soothe the throat *Throat Lozenges *Warm fluids like tea with honey may help to soothe the throat *Sleep elevated *Humidifier/Vaporizer Your throat swab was sent for culture. Those results are typically sent to your primary care. Be sure to follow up in 2-3 days with your family doctor/primary care physician if no improvement so they can review those result and treat if necessary. If you don?t have a primary care doctor, I recommend you get one but in the mean time, you will have to return to a walk in clinic Follow up IMMEDIATELY for new or worsening symptoms or no Noticeable improvement over the next 48-72 hours. 911 for difficulty breathing or swallowing Prescriptions: methylPREDNISolone [Medrol 4mg tab] 4 mg PO DIRECTED #21 tab Transmission Status: Pending to [facility] Azithromycin [Z-Tariq 250mg Tab] 250 mg PO DIRECTED #6 tab Transmission Status: Pending to [facility] Referrals: Dariela Wilkins APRN [Primary Care Provider] - As needed Time of Disposition: 13:11 Medical Decision Making - Rj Inquiry Pt receiving controlled substance: No Rj was queried for this patient: No Vital Signs: 06/16/21 12:40 Temperature 98.9 F Temperature Source Oral Pulse Rate [Right Brachial] 79 Respiratory Rate 21 Blood Pressure [Right Arm] 128/91 H Blood Pressure Mean [Right Arm] 103 Blood Pressure Source [Right Arm] Automatic Cuff Blood Pressure Position [Right Arm] Sitting 02 Sat by Pulse Oximetry 98 Oxygen Delivery Method Room Air - Lab Data Lab results reviewed: Yes: I reviewed the patient's lab results. Lab Results 06/16/21 12:16: Group A Strep Rapid Negative Orders (Tests/Meds): ORDERS Category Date Time Status Strep Screen Confirmation Stat Micro 06/16/21 12:16 Received [facility] [place] HPI - General Stated complaint: sore throat, CAMPOS, cough Time Seen by Provider: 06/16/21 13:07 Mode of Arrival: Ambulatory Source of Information: Patient Limitations: No Limitations Description of Symptoms (Recalled from Triage Doc. by RN): PATIENT C/O SORE THROAT, COUGH, NAUSEA AND HEADACHE HEENT Symptoms (Recalled from RN notes): Yes Resp Symptoms (Recalled from RN notes): No Skin Symptoms (Recalled from RN notes): No MS Symptoms (Recalled from RN notes): No Functional Status (Recalled from RN notes): WNL - History of Present Illness Provider Complaint: Patient states that she has been having sore throat, cough and headache for a couple of days and daughter has strep throat States that today she was feeling worse so she came in to get checked out - Related Data Home Medications Medication Instructions Recorded Confirmed bupropion HCl 100 mg tablet 100 mg PO BID 02/13/21 06/16/21 hydrOXYzine HCL [Hydroxyzine HCl] 25 mg PO HSP PRN 02/15/21 04/03/21 albuterol sulfate 90 mcg/actuation 1 g INHALATION NEEDED PRN 03/10/21 04/03/21 aerosol inhaler Previous Rx's Medication Instructions Recorded Azithromycin [Z-Tariq 250mg Tab] 250 mg PO DIRECTED #6 tab 06/16/21 methylPREDNISolone [Medrol 4mg 4 mg PO DIRECTED #21 tab 06/16/21 tab] Allergies Allergy/AdvReac Type Severity Reaction Status Date / Time levofloxacin [From Levaquin] Allergy Mild rash Verified 03/31/21 09:30 - Worker's Comp Is this a Worker's
[2021-06-16 13:15] VITALS: BP 128/91; PULSE 79; RESP 21; TEMP 37.2; O2SAT 98
== END 2021-06-16 13:20 | disposition home or self-care (01) ==
PROVIDERS: Emergency Provider Nurse Practitioner; PCP Nurse Practitioner Family
DX: J06.9 Acute upper respiratory infection, unspecified (principal); F41.9 Anxiety disorder, unspecified
CPT/HCPCS: 87430; 99212; G0463

== ENCOUNTER 2021-12-13 08:38 | Emergency (ER) | payer BC, OTHER, SELFPAY ==
--- NOTE | 2021-12-13 08:40 | EXP.UTC ---
Discharge Plan Disposition Patient Disposition: Home, Self-Care Condition: Good Prescriptions Prescriptions: New azithromycin [Zithromax] 250 mg tablet 250 mg PO UD DOSE PK Qty: 6 0RF Rx Instructions: Take two (2) tablets today, then one (1) tablet days #2 thru #5 benzonatate [benzonatate] 100 mg capsule 100 mg PO TIDP PRN (Reason: Cough) Qty: 30 0RF methylprednisolone 4 mg Tablets,Dose Pack 4 mg PO DIRECTED Qty: 21 0RF No Action bupropion HCl 100 mg tablet 100 mg PO BID albuterol sulfate 90 mcg/actuation HFA aerosol inhaler 1 g INHALATION NEEDED PRN (Reason: SOA) hydroxyzine HCl 25 MG tablet 25 mg PO HSP PRN (Reason: Insomnia) azithromycin 250 MG tablet 250 mg PO DIRECTED Qty: 6 0RF Rx Instructions: Take two (2) tablets on day #1, then one (1) tablet day #2 thru #5 methylprednisolone 4 MG tablet 4 mg PO DIRECTED Qty: 21 0RF Rx Instructions: Take as directed on package instructions Referrals Follow up/Referrals: Susan Asencio APRN [Primary Care Provider] - See instructions Activity Restrictions/Add. Instructions Additional Instructions/Restrictions: Drink plenty of fluids. Take tylenol or ibuprofen for pain or fever. Take the medications as directed. Follow up with your regular doctor. GO TO THE ER FOR ANY WORSENING SYMPTOMS Clinical Impressions Clinical Impression: Sinusitis Instructions Patient Instructions: DI for Sinusitis, DI for Acute Bronchitis Discharge ED Provider: Nima Jay [facility] [place] HPI General Stated complaint: Congestion Time Seen by Provider: 12/13/21 08:40 History of Present Illness Provider Complaint: She states that for the past 5 days she has had chest and sinus congestion. She tested negative for covid-19 and flu 2 days ago. She states that since then she has had worse congestion. Related Data Home Medications Medication Instructions Recorded Confirmed bupropion HCl 100 mg tablet 100 mg PO BID Anxiety 02/13/21 06/16/21 hydroxyzine HCl 25 mg tablet 25 mg PO HSP PRN Insomnia 02/15/21 04/03/21 albuterol sulfate 90 mcg/actuation 1 g inhalation NEEDED PRN SOA 03/10/21 04/03/21 aerosol inhaler Previous Rx's Medication Instructions Recorded azithromycin 250 mg tablet 250 mg PO DIRECTED #6 tabs 06/16/21 methylprednisolone 4 mg tablet 4 mg PO DIRECTED #21 tabs 06/16/21 azithromycin 250 mg tablet 250 mg PO UD DOSE PK #6 tabs 12/13/21 (Zithromax) benzonatate 100 mg capsule 100 mg PO TIDP PRN Cough #30 caps 12/13/21 methylprednisolone 4 mg tablets in 4 mg PO DIRECTED #21 tabs 12/13/21 a dose pack Allergies Allergy/AdvReac Type Severity Reaction Status Date / Time levofloxacin [From Levaquin] Allergy Mild rash Verified 12/13/21 09:08 [facility] Social History Smoking Status: Never smoker alcohol intake: never substance use type: denies use current occupational status: other Travel in the last 8 weeks: None housing: house caffeine: Yes ROS Obtained: Yes All systems reviewed & no additional complaints except as documented Constitutional Constitutional: Denies chills and Denies fever(s) Eyes Eyes: Denies eye discharge ENT Ears, Nose, Mouth, and Throat: Reports as per HPI, Denies dizziness, Denies otalgia and Reports sore throat Cardiovascular Cardiovascular: Denies chest pain Respiratory Respiratory: Denies shortness of breath, Denies chest congestion, Reports cough, Denies stridor and Denies wheezing Gastrointestinal Gastrointestingal: Denies nausea or vomiting Musculoskeletal Musculoskeletal: Reports system reviewed and no additional complaints, except as documented and Denies arthralgias Integumentary/Breasts Skin/Breast: Denies rash Neurologic Neurologic: Denies dizziness and Denies paresthesias Allergic/Immunologic Allergic/Immunologic: Denies wheezing Physical Exam General General appe
[2021-12-13 09:04] VITALS: BP 134/85; PULSE 86; RESP 17; TEMP 36.7; O2SAT 100; BMI 27.4
[2021-12-13 09:15] LABS: UTC Influenza A Antigen Negative (Negative); UTC Influenza B Antigen Negative (Negative)
[2021-12-13 09:36] VITALS: BP 134/85; PULSE 86; RESP 17; TEMP 36.7
== END 2021-12-13 09:37 | disposition home or self-care (01) ==
PROVIDERS: Emergency Provider Nurse Practitioner Family; PCP Nurse Practitioner Family
DX: J32.9 Chronic sinusitis, unspecified (principal)
CPT/HCPCS: 87804; 99212; G0463

== ENCOUNTER → 2022-02-10 15:29 | Outpatient (CLI) | payer BC, OTHER, SELFPAY ==
--- NOTE | 2022-02-10 15:29 | US_ITS ---
FINAL REPORT CLINICAL HISTORY: pelvic pain history of ovarian cyst FINDINGS: Transvaginal sonographic images of the pelvis were obtained. The uterus is retroverted and normal. No endometrial thickening is identified. The ovaries are unremarkable. IMPRESSION: Unremarkable pelvic ultrasound. Reviewed, Interpreted and Dictated by Alina Trejo MD Transcribed by Chrystal Martínez Authenticated and [facility]
== END ==
PROVIDERS: PCP Nurse Practitioner Family; Visit Provider Obstetrics & Gynecology
DX: R10.2 Pelvic and perineal pain (principal); Z87.42 Personal history of other diseases of the female genital tract
CPT/HCPCS: 76830

== ENCOUNTER 2022-06-12 09:55 | Emergency (ER) | payer BC, OTHER, SELFPAY ==
[2022-06-12 10:05] VITALS: BP 142/97; PULSE 99; RESP 20; TEMP 37.2; O2SAT 100; BMI 27.4
[2022-06-12 10:28] VITALS: BP 142/97; PULSE 99; RESP 20; TEMP 37.2; O2SAT 100
--- NOTE | 2022-06-12 10:49 | EXP.UTC ---
Discharge Plan Disposition Patient Disposition: Home, Self-Care Condition: Good Prescriptions Prescriptions: New azithromycin [Zithromax] 250 mg tablet 250 mg PO UD DOSE PK Qty: 6 0RF Rx Instructions: Take two (2) tablets today, then one (1) tablet days #2 thru #5 benzonatate [benzonatate] 100 mg capsule 100 mg PO TIDP PRN (Reason: Cough) Qty: 30 0RF ondansetron 4 mg Tablet,Disintegrating 4 mg PO Q8H PRN (Reason: Nausea) Qty: 12 0RF No Action bupropion HCl 100 mg tablet 150 mg PO BID Referrals Follow up/Referrals: Susan Asencio APRN [Primary Care Provider] - See instructions Activity Restrictions/Add. Instructions Additional Instructions/Restrictions: Drink plenty of fluids. Take tylenol or ibuprofen for pain or fever. Take the medications as directed. Follow up with your regular doctor. GO TO THE ER FOR ANY WORSENING SYMPTOMS Clinical Impressions Clinical Impression: Viral syndrome, Sinusitis Stand Alone Forms Stand Alone Forms: Work/School Release Instructions Patient Instructions: DI for Sinusitis, DI for Viral Syndrome Discharge ED Provider: Nima Jay [facility] General Stated complaint: Congestion bodyaches headache Mode of Arrival: Ambulatory Source of Information: Patient Limitations: No Limitations Time Seen by Provider: 06/12/22 10:45 Description of Symptoms (Recalled from Triage Doc. by RN): PATIENT C/O NASAL CONGESTION, MUSCLE ACHES, AND HEADACHE SINCE WEDNESDAY HEENT Symptoms (Recalled from RN notes): Yes Resp Symptoms (Recalled from RN notes): No Skin Symptoms (Recalled from RN notes): No MS Symptoms (Recalled from RN notes): No Functional Status (Recalled from RN notes): WNL History of Present Illness Provider Complaint: She states that for the past 2 days she has had chills, body aches, headache, sore throat and a dry cough. Related Data Home Medications Medication Instructions Recorded Confirmed bupropion HCl 100 mg tablet 150 mg PO BID Anxiety 02/13/21 06/12/22 Previous Rx's Medication Instructions Recorded azithromycin 250 mg tablet 250 mg PO UD DOSE PK #6 tabs 06/12/22 (Zithromax) benzonatate 100 mg capsule 100 mg PO TIDP PRN Cough #30 caps 06/12/22 ondansetron 4 mg disintegrating 4 mg PO Q8H PRN Nausea #12 tabs 06/12/22 tablet Allergies Allergy/AdvReac Type Severity Reaction Status Date / Time levofloxacin [From Levaquin] Allergy Mild rash Verified 02/17/22 09:17 Worker's Comp Is this a Worker's Comp case?: No [facility] Disclaimer: The information contained in this section may have been updated after the patient was seen, as this information can be updated by other users. Medical History Anxiety Chronic bladder pain Chronic interstitial cystitis Family history of breast cancer in female Surgical History History of cholecystectomy History of endometrial ablation History of tonsillectomy History of tubal ligation Hx of section Social History Smoking Status: Never smoker alcohol intake: never substance use type: denies use current occupational status: other Travel in the last 8 weeks: None housing: house caffeine: Yes ROS Obtained: Yes All systems reviewed & no additional complaints except as documented Constitutional Constitutional: Reports chills and Reports fever(s) Eyes Eyes: Denies eye discharge ENT Ears, Nose, Mouth, and Throat: Reports as per HPI Cardiovascular Cardiovascular: Denies chest pain Respiratory Respiratory: Denies chest congestion and Reports cough Gastrointestinal Gastrointestingal: Reports nausea; Denies abdominal pain, constipation, cramping, diarrhea or vomiting Musculoskeletal Musculoskeletal: Denies arthralgias Integumentary/Breasts Skin/Breast: Denies rash Neurologic Neurologic: Denies pares
[2022-06-12 11:03] LABS: UTC Influenza A Antigen Negative (Negative); UTC Strep Screen (Rapid) Negative (Negative)
[2022-06-12 11:04] LABS: UTC Influenza B Antigen Negative (Negative)
[2022-06-12 11:30] LABS: Adenovirus,PCR Not Detected (NotDetected); Bordetella Pertussis Not Detected (NotDetected); Chlamydophila Pneumoniae, PCR Not Detected (NotDetected); Coronavirus 229E Not Detected (NotDetected); Coronavirus NL63 Not Detected (NotDetected); Coronavirus OC43 Not Detected (NotDetected); Coronovirus HKU1,PCR Not Detected (NotDetected); Human Metapneumovirus Not Detected (NotDetected); Influenza A, PCR Not Detected (NotDetected); Influenza AH1, 2009 Not Detected (NotDetected); Influenza AH1, PCR Not Detected (NotDetected); Influenza AH3,PCR Not Detected (NotDetected); Influenza B, PCR Not Detected (NotDetected); Mycoplasma Pneumoniae, PCR Not Detected (NotDetected); Parainfluenza 1, PCR Not Detected (NotDetected); Parainfluenza 2, PCR Not Detected (NotDetected); Parainfluenza 3, PCR Not Detected (NotDetected); Parainfluenza 4, PCR Not Detected (NotDetected); Respiratory Syncytial Virus Not Detected (NotDetected); Rhinovirus/Enterovirus Not Detected (NotDetected)
[2022-06-12 12:54] LABS: Coronavirus 19, PCR Detected (NotDetected)
== END 2022-06-12 11:28 | disposition home or self-care (01) ==
PROVIDERS: Emergency Provider Nurse Practitioner Family; PCP Nurse Practitioner Family
DX: U07.1 COVID-19 (principal); R51.9 Headache, unspecified; J03.90 Acute tonsillitis, unspecified
CPT/HCPCS: 87581; 87632; 87798; 87804; 87880; 99212; 99214; C9803; G0463; U0003; U0005

== ENCOUNTER 2023-02-09 15:22 | Emergency (ER) | payer BC, OTHER, SELFPAY ==
[2023-02-09 18:05] VITALS: BP 130/88; PULSE 78; RESP 19; TEMP 37.1; O2SAT 99; BMI 31.6
--- NOTE | 2023-02-09 18:09 | EXP.UTC ---
Discharge Plan Disposition Patient Disposition: Home, Self-Care Condition: Good Prescriptions Prescriptions: No Action Elmiron 100 mg capsule 100 mg PO TID Qty: 90 11RF Referrals Follow up/Referrals: Provider,Referral, MD [Primary Care Provider] - See instructions Activity Restrictions/Add. Instructions Additional Instructions/Restrictions: *Monitor Temp, Over the counter Motrin or Tylenol as directed/as needed Tylenol every 4 hours and Motrin every 6 hours (as long as your family doctor has told you that you can take it) for fever or pain. and straight to ER if unable to lower temp less than 101.0 after medication given *Warm salt water gargles may help to soothe the throat *Throat Lozenges? *Warm fluids like tea with honey may help to soothe the throat? *Sleep elevated *Humidifier/Vaporizer Follow up IMMEDIATELY for new or worsening symptoms or no Noticeable improvement over the next 48-72 hours. 911 for difficulty breathing or swallowing You were tested for today for ?Upper Respiratory Panel with COVID19 your test result should be back in the next 24-72hours, you may check your results on the [facility] if your COVID or Flu is positive you must Quarantine for 5 days Clinical Impressions Clinical Impression: Viral syndrome Stand Alone Forms Stand Alone Forms: Work/School Release Instructions Patient Instructions: DI for Viral Syndrome Discharge ED Provider: Maryjane Delarosa [facility] HPI General Stated complaint: congestion, body aches, h/a Time Seen by Provider: 02/09/23 18:18 History of Present Illness Provider Complaint: Patient states that she has been having body aches, chills and nasal congestion that started yesterday States that daughter is having similar symptoms and daughter tested negative for the flu and COVID earlier Related Data Previous Rx's Medication Instructions Recorded pentosan polysulfate sodium 100 mg 100 mg PO TID #90 caps 11/02/22 capsule (Elmiron) Allergies Allergy/AdvReac Type Severity Reaction Status Date / Time levofloxacin [From Levaquin] Allergy Mild rash Verified 11/02/22 15:06 [facility] Disclaimer: The information contained in this section may have been updated after the patient was seen, as this information can be updated by other users. Medical History Anxiety Chronic bladder pain Chronic interstitial cystitis Family history of breast cancer in female History of endometriosis Surgical History History of cholecystectomy History of endometrial ablation History of root canal procedure History of tonsillectomy History of tubal ligation Hx of section Family History (Updated 11/02/22 @ 15:11 by NICO Jaramillo) Other No significant family history Social History Smoking Status: Never smoker alcohol intake: never substance use type: denies use current occupational status: other Travel in the last 8 weeks: None housing: house caffeine: Yes ROS Obtained: Yes All systems reviewed & no additional complaints except as documented and Yes Systems reviewed as appropriate & no additional complaints except as documented Constitutional Constitutional: Reports system reviewed and no additional complaints, except as documented, Reports as per HPI, Reports body ache, Reports chills, Reports fever(s) and Reports headache(s) ENT Ears, Nose, Mouth, and Throat: Reports system reviewed and no additional complaints, except as documented, Reports as per HPI, Reports headache(s) and Reports nasal congestion Cardiovascular Cardiovascular: Reports system reviewed and no additional complaints, except as documented and Reports as per HPI Respiratory Respiratory: Reports system reviewed and no additional complaints, except as documented and Reports as per HPI Gastrointestinal Gastrointestingal: Reports system reviewed and no additional complaints, except as documented and as per HPI Neurologic Neurologic: Reports headache(s) Physical Exam General General appearance: alert and in no apparent distress ENT ENT exam: Present mucous membranes moist Expanded ENT Exam Nose exam: Present other (reports nasal congestion x 2 days) Chest Chest inspection: Present normal inspection and symmetric chest wall rise Respiratory Respiratory exam: Present normal lung sounds bilaterally; Absent respiratory distress or wheezes Cardiovascular Cardiovascular exam: Present regular rate, normal rhythm and normal heart sounds Abdominal Exam Abdominal exam: Present soft and normal bowel sounds; Absent distention or tenderness Neurological Exam Neurological exam: Present alert, oriented X3 and normal gait Medical Decision Making Rj Inquiry Pt receiving controlled substance: No Rj was queried for this patient: No
[2023-02-09 18:24] LABS: UTC Influenza A Antigen Negative (Negative)
[2023-02-09 18:25] LABS: UTC Influenza B Antigen Negative (Negative)
[2023-02-09 18:35] VITALS: BP 130/88; PULSE 78; RESP 19; TEMP 37.1; O2SAT 99
[2023-02-09 19:48] LABS: Adenovirus,PCR Not Detected (NotDetected); Coronavirus 19, PCR Not Detected (NotDetected); Coronavirus 229E Not Detected (NotDetected); Coronavirus NL63 Not Detected (NotDetected); Coronavirus OC43 Not Detected (NotDetected); Coronovirus HKU1,PCR Not Detected (NotDetected); Human Metapneumovirus Not Detected (NotDetected); Influenza A, PCR Not Detected (NotDetected); Influenza AH1, 2009 Not Detected (NotDetected); Influenza AH1, PCR Not Detected (NotDetected); Influenza AH3,PCR Not Detected (NotDetected); Influenza B, PCR Not Detected (NotDetected); Parainfluenza 1, PCR Not Detected (NotDetected); Parainfluenza 2, PCR Not Detected (NotDetected); Parainfluenza 3, PCR Not Detected (NotDetected); Parainfluenza 4, PCR Not Detected (NotDetected); Respiratory Syncytial Virus Not Detected (NotDetected); Rhinovirus/Enterovirus Not Detected (NotDetected)
== END 2023-02-09 18:39 | disposition home or self-care (01) ==
PROVIDERS: Emergency Provider Nurse Practitioner
DX: R51.9 Headache, unspecified (principal); R09.81 Nasal congestion; R50.9 Fever, unspecified; M79.18 Myalgia, other site
CPT/HCPCS: 87632; 87635; 87804; 99212; 99213; G0463

== ENCOUNTER 2023-05-06 16:13 | Outpatient (CLI) | payer BC, OTHER, SELFPAY ==
[2023-05-06 17:03] LABS: Basophils # 0.1 K/mm3 (0-0.2); Basophils % 1.3 % (0.1-2.0); Eosinophils % 0.3 % (0.1-12.0); Hematocrit 42.9 % (37.0-47.0); Hemoglobin 14.1 g/dL (12.2-16.2); Lymphocytes # 1.9 K/mm3 (0.7-4.5); Lymphocytes % 35.1 % (10-50); Mean Corpuscular HGB Conc 32.9 g/dL (31.8-35.4); Mean Corpuscular Hemoglobin 31.3 pg (27.0-31.2); Mean Corpuscular Volume 95.1 fl (81-99); Mean Platelet Volume 8.6 fl (7.4-10.4); Monocytes # 0.3 K/mm3 (0.1-1.0); Monocytes % 5.2 % (1.7-9.3); Neutrophils # 3.1 K/mm3 (1.8-7.8); Platelet Count 188 K/mm3 (142-424); Red Blood Count 4.51 M/mm3 (4.20-5.40); Red Cell Distribution Width 13.3 % (11.5-17.5); White Blood Count 5.3 K/mm3 (4.8-10.8)
[2023-05-06 17:51] LABS: Alanine Aminotransferase 43 U/L (12-78); Albumin Level 4.4 g/dl (3.5-5.0); Albumin/Globulin Ratio 1.8 (1.1-1.8); Alkaline Phosphatase 58 U/L (38-126); Anion Gap 8.9 mEq/L (5-15); Aspartate Amino Transferase 85 U/L (14-36); Bilirubin,Total 0.5 mg/dl (0.2-1.3); Blood Urea Nitrogen 12 mg/dl (7-17); Calcium 9.5 mg/dl (8.4-10.2); Carbon Dioxide 31 mmol/L (22.0-30.0); Chloride 103 mmol/L (98-107); Estimated Glomerular Filt Rate 90 ml/min (>60); GFR (African American) 109 ML/MIN (>60); Globulin 2.4 g/dL (1.3-3.2); Glucose 99 mg/dl (74-100); Potassium 3.9 mmoL/L (3.5-5.1); Sodium 139 mmol/L (136-145); Total Protein,Serum 6.8 g/dl (6.3-8.2)
[2023-05-06 18:09] LABS: HCG,Quantitative < 2 mIU/ml (0-5.42)
== END 2023-05-06 23:59 ==
LOC: LAB 16:14
PROVIDERS: PCP Nurse Practitioner Family; Visit Provider Nurse Practitioner Obstetrics & Gynecology
DX: Z01.818 Encounter for other preprocedural examination (principal)
CPT/HCPCS: 36415; 80053; 84702; 85025; 86850

== ENCOUNTER 2023-05-10 06:10 | Observation (INO) | payer BC, OTHER, SELFPAY ==
[2023-05-06 09:04] VITALS: BMI 28.9
[2023-05-10] VITALS (23 sets, daily range): BP systolic 105–140; BP diastolic 57–87; PULSE 68–85; RESP 14–22; TEMP 36.4–43; O2SAT 94–100
[2023-05-10] MEDS: LACTATED RINGERS 1000ML 1,000 ML 25 ML IV (06:44)
--- NOTE | 2023-05-10 06:55 | EXP.ANES.CKL ---
[facility] Disclaimer: The information contained in this section may have been updated after the patient was seen, as this information can be updated by other users. Medical History History of endometriosis Anxiety Chronic interstitial cystitis Chronic bladder pain Family history of breast cancer in female Surgical History History of root canal procedure History of tonsillectomy History of cholecystectomy History of endometrial ablation Hx of section History of tubal ligation Family History Other No significant family history Social History (Updated 05/10/23 @ 06:40 by Mayelin Bustamante RN) Smoking Status: Never smoker alcohol intake: never substance use type: denies use current occupational status: employed Travel in the last 8 weeks: None housing: house caffeine: Yes [facility] Anesthesia Checklist Patient Identification Patient Identification: Arm Band, Family and Verbal (Name & ) Structural Data Admitted From: Home Planned Operative Procedure/s: [facility] Consent for Planned Operative Procedure(s) Verified: Yes Verified Documents: Surgical Consent and History and Physical NPO Status Verified Time NPO: 22:30 Chart Verification Results Verified: CBC, BMP and HCG Additional verifications Patient : No Anesthesia Reactions: No Hx Blood Transfusions: Yes Blood Transfusion Reaction: No Cardiovascular Assessment Heart Sounds: S1 & S2 Pulse Rhythm: Irregular Peripheral Edema: No Airway Assessment Mallampati Score:: Class II C-Spine Mobility Assessed: Yes (FROM) TMJ Mobility Assessed: Yes Dentition: Good Dentition (Nothing loose per pt.) Neurological Assessment Level of Consciousness: Awake, Alert, Appropriate and Follows Commands Hx Seizures: No Numbness or tingling in extremities: No Anesthesia Plan Anesthesia Risk discussed: Yes Anesthesia Plan: Verified ASA Class: I Anesthesia Type: General
[2023-05-10] MEDS: LIDOCAINE 1% W/EPI 1:100,000 20ML VIAL 20 ML ×2 (08:14→08:15)
[2023-05-10] MEDS: CEFAZOLIN SODIUM 1 GM in 0.9 % SODIUM CHLORIDE 50 ML IV ×3 (08:14→23:58)
[2023-05-10] MEDS: ROPIVACAINE 0.5% 30ML VIAL 300 MG (08:15)
--- NOTE | 2023-05-10 10:17 | EXP.ANES.I ---
[facility] Anesthesia Record Part I Anesthesia Record I Intake, IV Amount: 1,000 Hydration: Adequate Estimated blood loss (mL): 250 Urine output (mL): 100 Blood Pressure: 108/57 SaO2: 94 Pulse Rate: 77 Airway Patency: Patent Respiratory Rate: 22 Temperature: 98 F Patient is:: Awake Stable to PACU at:: 10:15
[2023-05-10] MEDS: HYDROMORPHONE 2MG/ML SYRINGE 0.5 MG IV ×4 (10:34→10:58)
[2023-05-10 10:39] LABS: Microscopic,Cath URINE MICROSCOPIC (MICROSCOPIC)
[2023-05-10 10:54] LABS: Appearance,Urine/Cath CLEAR (Clear); Bilirubin,Cath Negative (Negative); Blood, Urine/Cath 1+ (Negative); Color,Urine/Cath YELLOW (Yellow); Glucose,Urine/Cath (UA) Negative (Negative); Ketones,Urine/Cath TRACE (Negative); Leukocyte Esterase,Cath Negative (Negative); Nitrate,Cath Negative (Negative); Protein,Urine/Cath Negative (Negative); Specific Gravity, Urine/Cath >= 1.030 (1.005-1.030); Urobilinogen,Cath 0.2 EU/dl (0.2)
[2023-05-10] MEDS: ONDANSETRON 4MG/2ML VIAL 4 MG IV (10:59)
[2023-05-10 11:07] LABS: Bacteria,Urine/Cath TRACE /lpf; Squamous Epithelial Ur./Cath Occasional #/hpf (0-5)
--- NOTE | 2023-05-10 11:45 | PC.NURSE ---
2L O2 applied via NC, SPO2 increased to 100%. Pt tolerating well.
--- NOTE | 2023-05-10 12:07 | P.OP_ITS ---
Date of procedure: 05/10/23 Pre-op Diagnosis:: Dyspareunia, dysmenorrhea, menorrhagia Post-op Diagnosis:: Dyspareunia, dysmenorrhea, menorrhagia, extensive pelvic peritoneal adhesions. Procedure performed:: Laparoscopically assisted vaginal hysterectomy, bilateral salpingectomy, extensive lysis of pelvic lesions. Surgeon:: Layo Velasco MD Thermoforming Machine Operator(s):: Dr. Alejandro GRAPHIC DESIGN ASSISTANT:: Trudy Neri Anesthesia: GETA Estimated blood loss (mL): 250 Clinical Note:: She is a 47-year-old lady who complains of heavy periods as well as pain with intercourse and pain with her periods. She has had a previous ablation and despite this continued to have problems. As result of that she was offered laparoscopic-assisted vaginal hysterectomy and bilateral salpingectomy. Operative findings:: She had extensive adhesions along the bladder flap the uterus itself was pulled up on the anterior abdominal wall where her scar was. There were adhesions along the left and right round ligaments as well. The right ovary looked like it had been slightly twisted upon itself upwards. Tubes appeared normal. Upper abdomen appeared normal. Operative note:: She was taken to the operating room where general anesthesia was found be adequate. She was prepped and draped in normal sterile fashion in the semilithotomy position. A weighted speculum was placed in the vagina and the anterior lip of the cervix was grasped with a tenaculum. A Nitza uterine manipulator was placed within the cervical os. The balloon was insufflated. I then changed gloves. I injected 10 cc of 0.5% ropivacaine around the umbilicus and made a small incision within the umbilicus. I inserted a Veress needle into the abdominal cavity. The abdominal cavity was then insufflated with carbon dioxide gas to a pressure of 20 mmHg. I then inserted an 11 mm trocar under direct vision. I injected through and through the pubic hairline, made a small incision here and inserted a 5 mm trocar under direct vision. I identified the inferior epigastric arteries on the left side, went lateral to these and injected through and through. I then made a small incision and inserted an 11 mm trocar under direct vision. A similar 11 mm trocar was placed on the right side. The left round ligament was then grasped and cut through with harmonic scalpel after freeing up the adhesions that were along the anterior abdominal wall. I then grasped the tube on the left side and cut through this. This is followed by cutting through the left utero-ovarian ligament. I used Harmonic scalpel on the coagulation mode. I then took down the posterior aspect of the broad ligament to the level of the uterosacral ligament. I then skeletonized the uterine arteries on the left side and placed hemoclips on these. Using the harmonic scalpel on coagulation mode adjacent to the cervix I then took down these uterine arteries. I then further freed up the bladder anteriorly and laterally on the left side. There were also extensive adhesions of the uterus that was adherent to the anterior abdominal wall. This required extensive adhesiolysis using harmonic scalpel and took at least a half an hour to free up the bladder anteriorly. I then turned my attention to the right side where I grasped the right round ligament. I then cut through the right round ligament. The right utero- ovarian ligament was then taken down with harmonic scalpel. I then took down the anterior peritoneum to the midline joining up with the other side. I further dissected the bladder off. The posterior aspect of the right broad ligament was then taken down with harmonic scalpel. I skeletonized the uterine arteries on the right side. I applied hemoclips to the uterine arteries and staying adjacent to the cervix on the right side I took down the uterine arteries with harmonic scalpel on coagulation mode. I further freed up the bladder. We then assured hemostasis. I then grasped the distal end of the right tube and using harmonic scalpel I cut along the mesosalpinx. The tube was removed through the 11 mm trocar site. This was similarly performed on the patient's left side. After once again assuring hemostasis we then turned our attention to the vaginal portion of the surgery. The patient was placed in the lithotomy position and a weighted speculum was placed in the vagina. The anterior and posterior lip of the cervix were grasped with Monsalve tenacula. I then injected 20 cc of 1% Xylocaine with epinephrine circumferentially about the cervix. I then circumscribed the cervix. I had difficulty opening up the posterior cul-de-sac using Vang scissors. I then elected to dissected off the anterior vaginal mucosa and opened up into the anterior cul-de-sac. I then placed a Karla retractor here. The left uterosacral ligament was then clamped cut and suture-ligated and tagged. This was followed by the left cardinal ligament which was clamped cut and suture- ligated. I then clamped cut and suture-ligated and tagged the right uterosacral ligament. This was followed by the right cardinal ligament which was clamped cut and suture-ligated. Both left and right uterine arteries were then clamped cut and suture-ligated. I then was able to place a long weighted speculum through the posterior aspect of the uterus and I was able to open up into the posterior cul-de-sac using blunt dissection. I further freed up the uterus with the pedicles that were remaining. These were clamped cut and suture-ligated. This freed up the uterus and it was removed through the vagina. Then inserted a short weighted speculum. Posterior cuff was then closed using running 2-0 Vicryl suture in a locked fashion. I then placed a Crowley suture using 0 PDS. I passed it through the vagina and the peritoneum and then through the left perirectal fascia. I then plicated across the posterior peritoneum and through the right perirectal fascia. This was then passed through the peritoneum and vagina and left to be tied at the end. I was not able to grasp the anterior peritoneum due to the extensive adhesiolysis of the uterus. As result of that I just elected to close the vaginal cut. The vaginal cuff was then closed using running 0 Vicryl suture in a locked fashion from left to right from anterior to posterior. The Crowley suture was then tied. A Trinidad cath was then placed in the bladder. Clear urine was seen to flow. I then changed gloves and once again insufflated the abdominal cavity with carbon dioxide gas. Hemostasis was once again assured and I rinsed the pelvis. I then sprayed Gladis all around the pelvis. I injected approximately 20 cc of 0.5% ropivacaine into the pelvis. I let the gas out of the abdomen and once again hemostasis was assured. The secondary trochars were then removed under direct vision and the sites were hemostatic. The primary trocar and camera were removed together. No bowel was seen to follow. The 11 mm trocar sites were closed deeply with [id number] 2-0 Vicryl suture followed by running subcuticular 4-0 Monocryl suture. 5 mm trocar site was closed with subcuticular 4-0 Monocryl suture. Sterile dressings were applied. The patient tolerated procedure well and was taken to the recovery room in excellent condition. All sponge, instrument and needle counts were correct. The estimated blood loss was approximately 250 cc. Condition: stable Disposition: PACU Specimens:: Uterus and fallopian tubes Complications:: None
--- NOTE | 2023-05-10 12:20 | EXP.HP ---
History of Present Illness *Admission Date: 05/10/23 *Reason for visit:: Pelvic pain, dyspareunia, previous ablation *History of present illness: She is a 47-year-old lady who continues to have lower abdominal discomfort with her periods as well as heavy periods. She has had a previous ablation. She still has some spotting once in a while. She continues to have discomfort and when I examined her, her uterus was exquisitely tender. I suspect she may have adenomyosis. She also has a history of endometriosis. She has had 3 previous sections. Given the fact that she is so tender on examination, I believe that she would be a good candidate for LAVH. Will also do a bilateral salpingectomy. Today we discussed the risks of surgery that includes bleeding, infection, injuries to the bowel and bladder. We discussed the rare risk of laparotomy. We discussed the rare risk of injury to the ureters and the need for repair if there was any injuries. We discussed the need for DVT prophylaxis. All questions were answered and consents were signed. Plan Details [facility] Disclaimer: The information contained in this section may have been updated after the patient was seen, as this information can be updated by other users. Medical History History of endometriosis Anxiety Chronic interstitial cystitis Chronic bladder pain Family history of breast cancer in female Surgical History (Updated 05/10/23 @ 12:22 by Layo Velasco MD) History of root canal procedure History of tonsillectomy History of cholecystectomy History of endometrial ablation Hx of section History of tubal ligation Family History No significant family history Social History Smoking Status: Never smoker alcohol intake: never substance use type: denies use current occupational status: employed Travel in the last 8 weeks: None housing: house caffeine: Yes Review of Systems Review of Systems Review of systems:: pertinent systems reviewed and negative unless documented below Meds Home Medications and Allergies Home Medications Medication Instructions Recorded Confirmed Type pentosan polysulfate sodium 100 mg 100 mg PO TID #90 caps 11/02/22 05/10/23 Rx capsule (Elmiron) New Prescriptions to Start Prescriptions: Allergies Allergy/AdvReac Type Severity Reaction Status Date / Time levofloxacin [From Levaquin] Allergy Mild rash Verified 05/10/23 06:28 Exam Data for Last 24 hours Vital signs and Labs for Last 24 Hours: Temp Pulse Resp BP Pulse Ox O2 Del Method 97.7 F 75 14 110/68 94 L Room Air 05/10/23 11:30 05/10/23 11:30 05/10/23 11:30 05/10/23 11:30 05/10/23 11:30 05/10/23 11:30 Laboratory Results - last 24 hr 05/10/23 09:31: Urine Color Yellow, Urine Appearance Clear, Urine pH 6.0, Ur Specific [place] >= 1.030, Urine Protein Negative, Urine Glucose (UA) Negative, Urine Ketones Trace, Urine Blood 1+, Urine Nitrate Negative, Urine Bilirubin Negative, Urine Urobilinogen 0.2, Ur Leukocyte Esterase Negative, Urine RBC 10-20, Urine WBC None, Ur Squamous Epith Cells Occasional, Urine Bacteria Trace I & O for Last 24 hours: Intake & Output 05/08/23 05/09/23 05/10/23 05/11/23 11:59 11:59 11:59 11:59 Intake Total 1000 / 1000 Balance 1000 / 1000 Constitutional Constitutional: no acute distress *Routine HEENT Exam Head: Present normocephalic Eye: Present EOMI and PERRL ENT: Present mucous membranes moist *Routine Neck Exam Neck: Present supple; Absent lymphadenopathy *Routine Respiratory Exam Respiratory: Present CTA bilaterally *Routine Cardiovascular Exam Cardiovascular: Present RRR *Routine Abdominal Exam Abdominal: Present soft and normoactive bowel sounds; Absent tenderness *Routine Rectal Exam Rectal:: deferred *Routine Genitalia Exam Genitalia:: deferred *Routine Extremities Exam Extremities: Absent cyanosis, clubbing or edema *Routine Skin Exam Skin: Present warm; Absent rash *Routine Neurological Exam Neurological: Present alert and oriented X3 Assessment and Plan *Assessment and plan (1) Adenomyosis of uterus: Status: Acute Category: Medical Code(s): N80.03 - Adenomyosis of the uterus (2) History of endometriosis: Status: Acute Category: Medical Code(s): Z87.42 - Personal history of other diseases of the female genital tract (3) Dyspareunia: Status: Acute Category: Medical (4) History of endometrial ablation: Status: Acute Category: Surgical Code(s): Z98.890 - Other specified postprocedural states Plan She is admitted for laparoscopically assisted vaginal hysterectomy and bilateral salpingectomy.
[2023-05-10] MEDS: ACETAMINOPHEN 500MG TAB 1000 MG PO ×2 (15:31→20:01)
[2023-05-10] MEDS: LACTATED RINGERS 1000ML 1,000 ML 125 ML IV (15:32)
[2023-05-10] MEDS: KETOROLAC 30MG/ML VIAL 30 MG IV ×2 (16:30→22:11)
[2023-05-10] MEDS: SODIUM CHLORIDE 0.9% 10ML FLUSH SYRINGE 10 ML IV (16:31)
[2023-05-10] MEDS: SIMETHICONE 80MG CHEWABLE TABLET 160 MG PO ×2 (18:43→23:58)
--- NOTE | 2023-05-10 19:13 | PC.NURSE ---
All care and documentation by Codi Gonzalez Student nurse was completed under my direct supervision.
--- NOTE | 2023-05-10 20:19 | PC.NURSE ---
2L o2 nasal cannula removed at this time, pt o2 stats are reading 98-99% on RA. pt denies needs at this time
[2023-05-11] MEDS: LACTATED RINGERS 1000ML 1,000 ML 125 ML IV (00:52)
[2023-05-11] MEDS: ACETAMINOPHEN 500MG TAB 1000 MG PO ×2 (03:29→10:34)
[2023-05-11] MEDS: KETOROLAC 30MG/ML VIAL 30 MG IV ×2 (03:29→10:36)
[2023-05-11 03:33] VITALS: BP 115/77; PULSE 69; RESP 18; TEMP 36.6; O2SAT 98
--- NOTE | 2023-05-11 03:35 | PC.NURSE ---
patient has rested throughout the night, see EMAR for medication administration, pain has been controlled. upon reassessment lung sounds clear throughout, bowel sounds active in all quadrants, vitals stable. four incision sites with telfa and tegaderm still dry and intact with small amount of drainage noted. fluid remains infusing at 125ml/hr. IV patent. urinary catheter still in place draining clear yellow urine. patient denies needs at this time.
[2023-05-11 06:23] LABS: Basophils % 0.7 % (0.1-2.0); Hematocrit 35.8 % (37.0-47.0); Hemoglobin 11.6 g/dL (12.2-16.2); Lymphocytes % 33.6 % (10-50); Mean Corpuscular HGB Conc 32.4 g/dL (31.8-35.4); Mean Corpuscular Hemoglobin 30.4 pg (27.0-31.2); Mean Corpuscular Volume 93.9 fl (81-99); Mean Platelet Volume 8.5 fl (7.4-10.4); Monocytes # 0.4 K/mm3 (0.1-1.0); Neutrophils # 3.6 K/mm3 (1.8-7.8); Neutrophils % 59.6 % (37.0-80.0); Platelet Count 138 K/mm3 (142-424); Red Blood Count 3.81 M/mm3 (4.20-5.40); Red Cell Distribution Width 13.4 % (11.5-17.5)
[2023-05-11 06:28] LABS: Chloride 108 mmol/L (98-107); Sodium 137 mmol/L (136-145)
[2023-05-11 06:29] LABS: Potassium 3.5 mmoL/L (3.5-5.1)
[2023-05-11 06:32] LABS: Anion Gap 3.5 mEq/L (5-15); Blood Urea Nitrogen 9 mg/dl (7-17); Calcium 8.6 mg/dl (8.4-10.2); Carbon Dioxide 29 mmol/L (22.0-30.0); Creatinine Clearance Estimated 124 mL/min (50-200); Estimated Glomerular Filt Rate 108 ml/min (>60); GFR (African American) 130 ML/MIN (>60); Glucose 90 mg/dl (74-100)
[2023-05-11 08:15] VITALS: BP 114/73; PULSE 81; RESP 16; TEMP 36.9; O2SAT 100
[2023-05-11] MEDS: SIMETHICONE 80MG CHEWABLE TABLET 160 MG PO (08:20)
--- NOTE | 2023-05-11 08:30 | PC.NURSE ---
T[employer]T changed x4. Pt tolerated well
--- NOTE | 2023-05-11 08:32 | P.DS_ITS ---
General Admission date:: 05/10/23 Discharge date: 05/11/23 HPI HPI HPI: She is a 47-year-old lady who continues to have lower abdominal discomfort with her periods as well as heavy periods. She has had a previous ablation. She still has some spotting once in a while. She continues to have discomfort and when I examined her, her uterus was exquisitely tender. I suspect she may have adenomyosis. She also has a history of endometriosis. She has had 3 previous sections. Given the fact that she is so tender on examination, I believe that she would be a good candidate for LAVH. Will also do a bilateral salpingectomy. Today we discussed the risks of surgery that includes bleeding, infection, injuries to the bowel and bladder. We discussed the rare risk of laparotomy. We discussed the rare risk of injury to the ureters and the need for repair if there was any injuries. We discussed the need for DVT prophylaxis. All questions were answered and consents were signed. Plan Details Hospital Course Hospital Course Hospital Course: On May 10, 2023 she underwent a laparoscopically assisted vaginal hysterectomy and bilateral salpingectomy. She had extensive lysis of adhesions. The uterus was adherent to the anterior abdominal wall. The adhesions there were extremely thick. She has done well postoperatively and has remained afebrile with her hospitalization. She is eating and drinking and ambulating. She has had a [place] catheter it. She is voiding. She has not had a bowel movement but she has good bowel sounds. She denies any chest pain, shortness of breath or calf tenderness. Her incisions look clean and dry. She will be discharged home today to follow-up with me in approximately 2 weeks time. She will continue with her home medications. She was given a prescription for Percocet 5/325 number 14 tablets as well as Toradol 10 mg number 20 tablets. She was given the usual instructions with respect to limiting her activity, driving and sexual activity. She was given instructions with respect to wound care. Her condition on discharge is stable and improved. Exam Data for Last 24 hours Vital signs and Labs for Last 24 Hours: Temp Pulse Resp BP Pulse Ox O2 Del Method O2 Flow Rate 97.9 F 69 18 115/77 98 Room Air 2 05/11/23 03:33 05/11/23 03:33 05/11/23 03:33 05/11/23 03:33 05/11/23 03:33 05/11/23 06:00 05/10/23 20:00 Laboratory Results - last 24 hr 05/10/23 09:31: Urine Color Yellow, Urine Appearance Clear, Urine pH 6.0, Ur Specific [place] >= 1.030, Urine Protein Negative, Urine Glucose (UA) Negative, Urine Ketones Trace, Urine Blood 1+, Urine Nitrate Negative, Urine Bilirubin Negative, Urine Urobilinogen 0.2, Ur Leukocyte Esterase Negative, Urine RBC 10- 20, Urine WBC None, Ur Squamous Epith Cells Occasional, Urine Bacteria Trace 05/11/23 05:21: WBC 6.0, RBC 3.81 L, Hgb 11.6 L, Hct 35.8 L, MCV 93.9, MCH 30.4, MCHC 32.4, RDW 13.4, Plt Count 138 L, MPV 8.5, Neut % (Auto) 59.6, Lymph % (Auto) 33.6, [place] % (Auto) 6.0, Eos % (Auto) 0.0 L, Baso % (Auto) 0.7, Neut # (Auto) 3.6, Lymph # (Auto) 2.0, [place] # (Auto) 0.4, Eos # (Auto) 0.0, Baso # (Auto) 0.0, Sodium 137, Potassium 3.5, Chloride 108 H, Carbon Dioxide 29, Anion Gap 3.5 L, BUN 9, Creatinine 0.60, Estimated Creat Clear 124, Estimated GFR 108, Est GFR ( Amer) 130, Glucose 90, Calcium 8.6 I & O for Last 24 hours: Intake & Output 05/08/23 05/09/23 05/10/23 05/11/23 11:59 11:59 11:59 11:59 Intake Total 1000 / 1000 Output Total 1900 / 1900 Balance 1000 / 1000 -1900 / -1900 Constitutional Constitutional: no acute distress *Routine HEENT Exam Head: Present normocephalic Eye: Present EOMI and PERRL ENT: Present mucous membranes moist *Routine Neck Exam Neck: Present supple; Absent lymphadenopathy *Routine Respiratory Exam Respiratory: Present CTA bilaterally and normal respiratory effort; Absent accessory muscle use *Routine Cardiovascular Exam Cardiovascular: Present RRR *Routine Abdominal Exam Abdominal: Present soft and normoactive bowel sounds; Absent tenderness Comments: Her 4 laparoscopic incisions are healing well. *Routine Extremities Exam Extremities: Absent cyanosis, clubbing or edema *Routine Skin Exam Skin: Present warm; Absent rash *Routine Neurological Exam Neurological: Present alert and oriented X3 Results Data Completed and Pending Labs on day of discharge: Labs from last 24 hours 05/11/23 05/10/23 05:21 09:31 WBC 6.0 RBC 3.81 L Hgb 11.6 L Hct 35.8 L MCV 93.9 MCH 30.4 MCHC 32.4 RDW 13.4 Plt Count 138 L MPV 8.5 Neut % (Auto) 59.6 Lymph % (Auto) 33.6 [place] % (Auto) 6.0 Eos % (Auto) 0.0 L Baso % (Auto) 0.7 Neut # (Auto) 3.6 Lymph # (Auto) 2.0 [place] # (Auto) 0.4 Eos # (Auto) 0.0 Baso # (Auto) 0.0 Sodium 137 Potassium 3.5 Chloride 108 H Carbon Dioxide 29 Anion Gap 3.5 L BUN 9 Creatinine 0.60 Estimated Creat Clear 124 Estimated GFR 108 Est GFR ( Amer) 130 Glucose 90 Calcium 8.6 Urine Color Yellow Urine Appearance Clear Urine pH 6.0 Ur Specific [place] >= 1.030 Urine Protein Negative Urine Glucose (UA) Negative Urine Ketones Trace Urine Blood 1+ Urine Nitrate Negative Urine Bilirubin Negative Urine Urobilinogen 0.2 Ur Leukocyte Esterase Negative Urine RBC 10-20 Urine WBC None Ur Squamous Epith Cells Occasional Urine Bacteria Trace DS: Diagnosis Discharge Diagnosis (1) Adenomyosis of uterus: Status: Acute Code(s): N80.03 - (2) History of endometriosis: Status: Acute Code(s): Z87.42 - (3) Dyspareunia: Status: Acute (4) History of endometrial ablation: Status: Acute Code(s): Z98.890 - (5) Pelvic peritoneal adhesions, female: Status: Acute Code(s): N73.6 - Meds Home Medications and Allergies Home Medications Medication Instructions Recorded Confirmed Type pentosan polysulfate sodium 100 mg 100 mg PO TID #90 caps 11/02/22 05/10/23 Rx capsule (Elmiron) ketorolac 10 mg tablet 10 mg PO Q6H #20 tabs 05/11/23 Rx oxycodone-acetaminophen 5 mg-325 1 tab PO Q6H PRN pain #14 tabs 05/11/23 Rx mg tablet New Prescriptions to Start Prescriptions: ketorolac Layo Velasco oxycodone-acetaminophen Layo Velasco Allergies Allergy/AdvReac Type Severity Reaction Status Date / Time levofloxacin [From Levaquin] Allergy Mild rash Verified 05/10/23 06:28 Discharge Plan Disposition Patient Disposition: Home, Self-Care Follow up Plan Prescriptions/Medication Reconciliation: New ketorolac 10 mg Tablet 10 mg PO Q6H Qty: 20 0RF oxycodone-acetaminophen 5-325 mg tablet 1 tab PO Q6H PRN (Reason: pain) Qty: 14 0RF Continued Elmiron 100 mg capsule 100 mg PO TID Qty: 90 11RF Problem Reconciliation Problems Reviewed?: Yes Patient Discharge Instructions ACTIVITY: No heavy lifting DIET: continue same diet Providers Primary Care Provider: Susan Asencio Admit Provider: Layo Velasco Attending Provider: Layo Velasco
[2023-05-11] MEDS: SODIUM CHLORIDE 0.9% 10ML FLUSH SYRINGE 10 ML IV (10:37)
--- NOTE | 2023-05-11 12:50 | PC.NURSE ---
Discharge education provided, questions encouraged and answered. Pt. v/u.
--- NOTE | 2023-05-11 13:46 | PC.NURSE ---
All care and documentation by Codi Gonzalez Student nurse was completed under my direct supervision.
== END 2023-05-11 13:00 | disposition home or self-care (01) ==
LOC: OB 06:10
PROVIDERS: Admitting Provider Nurse Practitioner Obstetrics & Gynecology; PCP Nurse Practitioner Family; Visit Provider Nurse Practitioner Obstetrics & Gynecology
PROC: 0UT9FZZ Resection of Uterus, Via Natural or Artificial Opening With Percutaneous Endoscopic Assistance (ICD-10-PCS; CPT 58552; principal; 2023-05-10 07:30)
PROC: (CPT 58552; 2023-05-10 07:30)
DX: N80.03 Adenomyosis of the uterus (principal); N73.6 Female pelvic peritoneal adhesions (postinfective); F41.9 Anxiety disorder, unspecified
CPT/HCPCS: 58552; 49329; 36415; 80048; 81001; 85025; 96374; J3490; G0378; J0131; J2405

== ENCOUNTER 2023-05-21 08:31 | Emergency (ER) | payer BC, OTHER, SELFPAY ==
[2023-05-21 08:45] VITALS: BP 131/81; PULSE 81; RESP 20; TEMP 36.8; O2SAT 100; BMI 25.2
[2023-05-21 09:04] LABS: Apearance,Urine Clear (Clear); Blood, Urine 1+ (Negative); Color,Urine Dark Yellow (Yellow); Glucose,Urine (UA) Negative (Negative); Ketones,Urine Negative (Negative); Protein,Urine 1+ (Negative)
--- NOTE | 2023-05-21 09:04 | ED_ITS ---
Discharge Plan Disposition Patient Disposition: Home, Self-Care Condition: Good Prescriptions Prescriptions: New valacyclovir 1 gram tablet 1,000 mg PO Q8H 7 Days Qty: 21 0RF No Action Elmiron 100 mg capsule 100 mg PO TID Qty: 90 11RF Referrals Follow up/Referrals: Susan Asencio APRN [Primary Care Provider] - See instructions Activity Restrictions/Add. Instructions Additional Instructions/Restrictions: Follow up with your Family Doctor and OBGYN if no improvement or any worsening of symptoms Take medication as prescribed Try to avoid elderly or small children Straight to ER if any life threatening symptoms Clinical Impressions Clinical Impression: Shingles Instructions Patient Instructions: Low Back Pain, DI for Shingles Discharge ED Provider: Maryjane Delarosa [facility] General Stated complaint: lower back pain, rash on back Mode of Arrival: Ambulatory Source of Information: Patient Limitations: No Limitations Time Seen by Provider: 05/21/23 09:04 Description of Symptoms (Recalled from Triage Doc. by RN): PATIENT C/O LOWER BACK PAIN AND ITCHING/BURNING RASH TO BACK SINCE WEDNESDAY. NO KNOWN INJURY. SHE REPORTS HAVING A PARTIAL HYSTERECTOMY ON 05/10/23 HEENT Symptoms (Recalled from RN notes): No Resp Symptoms (Recalled from RN notes): No Skin Symptoms (Recalled from RN notes): Yes MS Symptoms (Recalled from RN notes): Yes Functional Status (Recalled from RN notes): WNL History of Present Illness Provider Complaint: Patient states that she had a partial hysterectomy on 05/09 and she noticed a rash starting on her left lower back area with itching and burning and now having pain in that area states that she wasnt sure if it may be a UTI or possibly shingles so she came in to get checked Related Data Previous Rx's Medication Instructions Recorded pentosan polysulfate sodium 100 mg 100 mg PO TID #90 caps 11/02/22 capsule (Elmiron) valacyclovir 1 gram tablet 1,000 mg PO Q8H 7 days #21 tabs 05/21/23 Allergies Allergy/AdvReac Type Severity Reaction Status Date / Time levofloxacin [From Levaquin] Allergy Mild rash Verified 05/10/23 06:28 Worker's Comp Is this a Worker's Comp case?: No [facility] Disclaimer: The information contained in this section may have been updated after the patient was seen, as this information can be updated by other users. Medical History (Updated 05/21/23 @ 09:14 by Maryjane Delarosa APRN) Viral syndrome Breast cyst Breast pain Sinusitis Viral syndrome Left knee sprain Encounter for laboratory testing for COVID-19 virus URI (upper respiratory infection) Cervical paraspinal muscle spasm Torticollis Rotator cuff (capsule) sprain History of endometriosis Anxiety Chronic interstitial cystitis Chronic bladder pain Family history of breast cancer in female Surgical History (Updated 05/15/23 @ 00:00 by Annabelle Live) Hx of exploratory laparotomy H/O dilation and curettage History of root canal procedure History of tonsillectomy History of endometrial ablation Hx of section History of tubal ligation Family History (Updated 05/10/23 @ 16:54 by JYOTI Ceballos) Father Lung cancer Grandmother Breast cancer Other No significant family history Social History (Updated 05/10/23 @ 16:54 by JYOTI Ceballos) Smoking Status: Never smoker alcohol intake: never substance use type: denies use current occupational status: employed Travel in the last 8 weeks: None housing: house caffeine: Yes ROS Obtained: Yes All systems reviewed & no additional complaints except as documented and Yes Systems reviewed as appropriate & no additional complaints except as documented ENT Ears, Nose, Mouth, and Throat: Reports system reviewed and no additional complaints, except as documented and Reports as per HPI Cardiovascular Cardiovascular: Reports system reviewed and no additional complaints, except as documented and Reports as per HPI Respiratory Respiratory: Reports system reviewed and no additional complaints, except as documented and Reports as per HPI Gastrointestinal Gastrointestingal: Reports system reviewed and no additional complaints, except as documented and as per HPI Genitourinary Female Genitourinary: Reports system reviewed and no additional complaints, except as documented and Reports as per HPI Musculoskeletal Musculoskeletal: Reports system reviewed and no additional complaints, except as documented, Reports as per HPI and Reports back pain (with raised red itchy rash that taylor ) Physical Exam General General appearance: alert and in no apparent distress ENT ENT exam: Present mucous membranes moist Respiratory Respiratory exam: Present normal lung sounds bilaterally; Absent respiratory distress or wheezes Cardiovascular Cardiovascular exam: Present regular rate, normal rhythm and normal heart sounds Back Exam Back exam: Present rashes and other Back 1 view image: 2 1. reports achy like pain that hurts when touched or sits against chair, denies known injury, denies loss of control of bowel or bladder 2. red raised rash noted tender to touch appears like shingles Neurological Exam Neurological exam: Present alert, oriented X3 and normal gait Skin Skin exam: Present rash Expanded Skin Exam Body image: 2 1. red raised rash tender to touch, describes as itches then hurts/taylor appears like shingles Medical Decision Making Rj Inquiry Pt receiving controlled substance: No Rj was queried for this patient: No Vital Signs: 05/21/23 08:45 Temperature 98.3 F Temperature Source Oral Pulse Rate [Left Brachial] 81 Respiratory Rate 20 Blood Pressure [Left Arm] 131/81 Blood Pressure Mean [Left Arm] 97 Blood Pressure Source [Left Arm] Automatic Cuff Blood Pressure Position [Left Arm] Sitting 02 Sat by Pulse Oximetry 100 Oxygen Delivery Method Room Air
[2023-05-21 09:05] LABS: Bilirubin,Urine 1+ (Negative); UTC Leukocyte Esterase,Urine Negative (Negative); UTC Nitrate,Urine Negative (Negative); Urobilinogen,Urine 1 EU/dl (0.2)
[2023-05-21 09:06] VITALS: BP 131/81; PULSE 81; RESP 20; TEMP 36.8; O2SAT 100
== END 2023-05-21 09:20 | disposition home or self-care (01) ==
PROVIDERS: Emergency Provider Nurse Practitioner; PCP Nurse Practitioner Family
DX: B02.9 Zoster without complications (principal)
CPT/HCPCS: 81003; 99212; 99214; G0463

== ENCOUNTER 2024-02-03 13:00 | Outpatient (CLI) | payer BC, OTHER, SELFPAY | END 2024-02-03 23:59 | disposition home or self-care (01) | LOC: LAB.DROPOF 02-07 10:00 | PROVIDERS: PCP Family Medicine; Visit Provider Family Medicine | DX: N39.0 Urinary tract infection, site not specified (principal); B96.20 Unspecified Escherichia coli [E. coli] as the cause of diseases classified elsewhere; R10.2 Pelvic and perineal pain | CPT/HCPCS: 87086; 87088; 87186 ==

== ENCOUNTER 2024-02-29 10:19 | Outpatient (CLI) | payer BC, OTHER, SELFPAY | END 2024-02-29 23:59 | disposition home or self-care (01) | LOC: LAB.DROPOF 03-01 10:26 | PROVIDERS: PCP Nurse Practitioner Family; Visit Provider Nurse Practitioner Family | DX: N39.0 Urinary tract infection, site not specified (principal) | CPT/HCPCS: 87086; 87088; 87186 ==

== ENCOUNTER 2024-07-04 16:00 | Outpatient (CLI) | payer BC, OTHER, SELFPAY | END 2024-07-04 23:59 | disposition home or self-care (01) | LOC: LAB.DROPOF 07-05 10:31 | PROVIDERS: PCP Nurse Practitioner Family; Visit Provider Nurse Practitioner Family | DX: N30.10 Interstitial cystitis (chronic) without hematuria (principal) | CPT/HCPCS: 87086; 87088; 87186 ==

== ENCOUNTER 2024-09-15 11:19 | Outpatient (CLI) | payer BC, OTHER, SELFPAY ==
--- OUTSIDE RECORDS SUMMARY | 2024-09-15 11:26 | XMS_ITS | Encounter Summary ---
Author Organization [employer] ([place], [place], [place], [place]) Address [address] [place] [address] Care Team Providers Care Core Maker Helper Name Role Phone Susan Abreu RN Primary Care Provider Layo Sifuentes MD Primary Care Provider [phone] Reason for Referral * Mammography (Routine) - Closed Specialty Diagnoses / Procedures Referred By Contac t Referred To Contact Diagnoses Visit for screening mammogram Procedures MM digital mammo screen with alfredo bilateral Cesario, Provider Not In The System, [place] [address] Referral ID Status Reason Start Date Expiration Date Visits Re quested Visits Authorized [id number] Closed 03/31/2023 09/27/2023 1 1 Encounter Details Date Type Department Care Team (Late st Contact Info) Description 03/30/2022 Outside Orders [facility] [address] [facility] [address] [place] [id number] Susan Abreu, ZAIN Visit for screening mammogram (Primary Dx) Social History Tobacco Use Types Packs/Day Years Used Date Smoking Tobacco: Never Assessed Comments Unknown Sex and Gender Information Value Date Recorded Sex Assigned at Female 08/05/2021 8:29 PM CDT Legal Sex Female 8:29 PM CDT Gender Identity Female 08/05/2021 8:29 PM CDT Sexual Orientation Not on file documented as of this encounter Plan of Treatment Upcoming Encounters Date Type Department Care Team (Late st Contact Info) Description 06/27/2025 4:00 PM EDT Appointment [facility] [address] [facility] [address] [place] [address] documented as of this encounter Results * MM digital mammo screen with alfredo bilateral (06/21/2023 4:11 PM EDT) Anatomical Region Laterality Modality Breast Bilateral Mammography 06/23/2023 3:34 PM EDT Impressions 06/23/2023 3:38 PM EDT FINAL IMPRESSION: ACR BI-RADS 2: Benign findings. RECOMMENDATIONS: Routine annual screening mammography. A letter including results and recommendations was sent to the patient. Density notification was provided to patients with type 3 or 4 breast tissue pattern. Patient information entered into a reminder system with a target due date for the next mammogram. At our facility, a augustine marker is positioned over a visible skin lesion and a linear marker is used to indicate a scar. A triangular marker is placed on a self reported palpable finding. Note: Mammography does not detect approximately 10-15% of breast cancers. An annual clinical breast exam by the patient's breast care physician and regular monthly self breast exams by the patient are integral parts of breast cancer screening, in addition to annual mammography. A normal mammogram does not completely exclude the presence of breast cancer, especially if there is an abnormal finding on physical exam. When clinically indicated, a biopsy should not be deferred because of a normal mammogram report. cc: D Narrative 06/23/2023 3:38 PM EDT PROCEDURE: Bilateral digital screening mammogram with tomosynthesis. REASON FOR EXAM: Routine screening. FAMILY HISTORY: There is weak family history of breast cancer. COMPARISON STUDY: [facility] FINDINGS: Craniocaudal and mediolateral oblique images of both breasts were obtained in 2D, C-view, and 3D modes. Upon initial review motion artifact was noted on the left MLO view. The patient returned for technical repeat of this projection on 06/23/2023. The breast tissue is heterogeneously dense, which may obscure small masses. There has been no change. Barely perceptible oval and round masses are present in both breasts. They're consistent with previously ultrasound demonstrated fibrocystic changes. There is no evidence of a spiculated mass, architectural distortion, or suspicious calcifications on either side. This examination was reviewed with the benefit of computer-aided detection (CAD). us Provider Not In The System guillermo ELIZONDO IMG MAMMOGRAPH Y ORDERABLES Final Result documented in this encounter Visit Diagnoses Diagnosis Visit for screening mammogram- Primary Visit for screening mammogram documented in this encounter Care Teams Core Maker Helper Relationship Specialty Start Date End Date Susan Abreu, ZAIN PCP - General 03/30/22 06/20/23 Layo Velasco MD [address] [place] [id number] PCP - General Obstetrics and Gynecology 06/21/23 documented as of this encounter
--- OUTSIDE RECORDS SUMMARY | 2024-09-15 11:26 | XMS_ITS | Encounter Summary ---
Author Organization [employer] ([place], [place], [place], [place]) Address [address] [place] [address] Care Team Providers Care Material Assembler Name Role Phone Layo Velasco MD Primary Care Provider [phone] Reason for Referral * Mammography (Routine) - Authorized Specialty Diagnoses / Procedures Referred By Contac t Referred To Contact Radiology Diagnoses Visit for screening mammogram Procedures MM digital mammo screen with alfredo bilateral Layo Velasco MD [address] [facility] [address] [address] Phone: tel: fax: [facility] [address] [facility] [address] [place] [phone] Phone: tel: fax: Referral ID Status Reason Start Date Expiration Date V isits Requested Visits Authorized [id number] Authorized 06/27/2025 06/27/2026 1 1 Encounter Details Date Type Department Care Team (Late st Contact Info) Description 06/26/2024 Outside Orders [facility] [address] [facility] [address] [place] [address] Layo Velasco MD [address] [place] [address] Visit for screening mammogram (Primary Dx) Social History Tobacco Use Types Packs/Day Years Used Date Smoking Tobacco: Never Assessed Family and Community Support Answer Travis e Recorded Help with Day to Day Activities Not on file 02/26/2023 Feeling Lonely or Isolated Not on file 02/26 Educational Attainment Answer Date Augie rded Speak language other than American at home Not on file 02/26/2023 Want help with school or training Not on file 02/26/2023 Substance Use Answer Date Recorded Used prescription meds for non-medical reasons N ot on file 02/26/2023 Used illegal drugs past 12 months Not on file 02/26/2023 Comments Unknown Sex and Gender Information Value Date Recorded Sex Assigned at Female 08/05/2021 8:29 PM CDT Legal Sex Female 8:29 PM CDT Gender Identity Female 08/05/2021 8:29 PM CDT Sexual Orientation Not on file documented as of this encounter Plan of Treatment Upcoming Encounters Date Type Department Care Team (Late st Contact Info) Description 06/27/2025 4:00 PM EDT Appointment [address] [phone] Scheduled Orders Name Type Priority Associated Diagnoses Orde r Schedule MM digital mammo screen with alfredo bilateral Imaging Routine Visit for screening mammogram Expected: 06/27/2025, Expires: 06/27/2026 documented as of this encounter Visit Diagnoses Diagnosis Visit for screening mammogram- Primary documented in this encounter Care Teams Material Assembler Relationship Specialty Start Date End Date Layo Velasco MD [address] [place] [address] PCP - General Obstetrics and Gynecology 06/21/23 documented as of this encounter
--- OUTSIDE RECORDS SUMMARY | 2024-09-15 11:26 | XMS_ITS | Referral Summary ---
Author Organization [employer] ([place], [place], [place], [place]) Address [address] [place] [address] Care Team Providers Care Assistant Administrator Name Role Phone Layo Velasco MD Primary Care Provider Encounters Date Type Department Care Team Description 07/05/2024 10:08 AM EDT - 07/05/2024 11:59 PM EDT Hospital Encounter [address] [phone] Sheridan Izaguirre MD Abnormal mammogram Discharge Disposition: Home or Self Care 07/05/2024 Travel 07/05/2024 9:00 AM EDT - 07/05/2024 10:07 AM EDT Hospital Encounter [address] [phone] Sheridan Izaguirre MD Abnormal mammogram Discharge Disposition: Home or Self Care 06/26/2024 Outside Orders [facility] Breast [address] [phone] Layo Velasco MD Visit for screening mammogram (Primary Dx) 06/26/2024 Travel 06/26/2024 4:00 PM EDT - 06/26/2024 11:59 PM EDT Hospital Encounter [address] [address] Layo Velasco MD Visit for screening mammogram (Primary Dx) Discharge Disposition: Home or Self Care from Last 3 Months Social History Tobacco Use Types Packs/Day Years Used Date Smoking Tobacco: Never Assessed Family and Community Support Answer Travis e Recorded Help with Day to Day Activities Not on file 02/26/2023 Feeling Lonely or Isolated Not on file 02/26 Educational Attainment Answer Date Augie rded Speak language other than Lithuanian at home Not on file 02/26/2023 Want [...] PM CDT Sexual Orientation Not on file Plan of Treatment Upcoming Encounters Date Type Department Care Team (Late st Contact Info) Description 06/27/2025 4:00 PM EDT Appointment [address] [phone] Procedures Procedure Name Priority Date/Time Associated Diagnosis Comments US BREAST BILATERAL LIMITED Routine 07/05/2024 10:20 AM EDT Abnormal mammogram MM DIGITAL MAMMO DIAGNOSTIC WITH BEATRIS BILATERAL Routine 07/05/2024 9:26 AM EDT Abnormal mammogram MM DIGITAL MAMMO SCREEN WITH BEATRIS BILATERAL Routine 06/26/2024 4:31 PM EDT Visit for screening mammogram from Last 3 Months Results * US BREAST BILATERAL LIMITED (07/05/2024 10:20 AM EDT) Anatomical Region Laterality Modality Breast Bilateral Ultrasound 07/05/2024 11:0 6 AM EDT Impressions 07/05/2024 11:13 AM EDT FINAL IMPRESSION: No findings suspicious for malignancy. Bi-RADS: ACR BI-RADS 2: Benign RECOMMENDATIONS: Yearly screening mammography This report will serve as the order for the recommended imaging studies/procedures. At our facility, a minto marker is positioned over a visible skin lesion and a linear marker is placed over a scar. The results and recommendations were discussed with the patient on the day of her appointment. In addition, a written report in lay terms, including density notification, was given to the patient. Patient information was entered into a reminder system with a target due date for the next mammogram. Narrative 07/05/2024 11:13 AM EDT PROCEDURE: Bilateral diagnostic mammogram with Digital Breast Tomosynthesis (DBT). With focused bilateral ultrasound REASON FOR EXAM: Bilateral asymmetries noted on screening mammography 06/26/2024 FAMILY HISTORY: Weak family history of breast cancer COMPARISON STUDY: [facility] 06/26/2024, 06/21/2023, 2022 FINDINGS: Craniocaudal and mediolateral oblique images of both breasts were obtained in 2D and DBT modes. Synthesized views were reconstructed from DBT data. Focused ultrasound was then performed of the posterior lateral 3:00 position of the left breast as well as the 7 to 10:00 position of the right breast. Breast density:The breasts are heterogeneously dense, which may obscure small masses. With the additional imaging, the areas of concern on the right efface somewhat. However ultrasound was performed in confirmation and several oval cysts are seen responding to the mammographic areas of concern. Some of these have a few internal echoes consistent with minimally complicated cysts. On the left in the posterior 2:00 to 3:00 position of the original mammographic area of concern does not completely efface. Seen sonographically, are multiple cysts, likely corresponding to some of the posterior lateral areas of concern seen mammographically, the rest of which efface. This examination was reviewed with the benefit of computer aided detection (CAD). Procedure Note Ruth Momin MD - 07/05/2024 PROCEDURE: Bilateral diagnostic mammogram with Digital Breast Tomosynthesis (DBT). With focused bilateral ultrasound REASON FOR EXAM: Bilateral asymmetries noted on screening mammography 06/26/2024 FAMILY HISTORY: Weak family history of breast cancer COMPARISON STUDY: [facility] 06/26/2024, 06/21/2023, 2022 FINDINGS: Craniocaudal and mediolateral oblique images of both breasts were obtained in 2D and DBT modes. Synthesized views were reconstructed from DBT data. Focused ultrasound was then performed of the posterior lateral 3:00 position of the left breast as well as the 7 to 10:00 position of the right breast. Breast density:The breasts are heterogeneously dense, which may obscure small masses. With the additional imaging, the areas of concern on the right efface somewhat. However ultrasound was performed in confirmation and several oval cysts are seen responding to the mammographic areas of concern. Some of these have a few internal echoes consistent with minimally complicated cysts. On the left in the posterior 2:00 to 3:00 position of the original mammographic area of concern does not completely efface. Seen sonographically, are multiple cysts, likely corresponding to some of the posterior lateral areas of concern seen mammographically, the rest of which efface. This examination was reviewed with the benefit of computer aided detection (CAD). IMPRESSION: FINAL IMPRESSION: No findings suspicious for malignancy. Bi-RADS: ACR BI-RADS 2: Benign RECOMMENDATIONS: Yearly screening mammography This report will serve as the order for the recommended imaging studies/procedures. At our facility, a minto marker is positioned over a visible skin lesion and a linear marker is placed over a scar. The results and recommendations were discussed with the patient on the day of her appointment. In addition, a written report in lay terms, including density notification, was given to the patient. Patient information was entered into a reminder system with a target due date for the next mammogram. us Sheridan Izaguirre MD [facility] [place] Final Result * MM digital mammo diagnostic with beatris bilateral (07/05/2024 9:26 AM EDT) Anatomical Region Laterality Modality Breast Bilateral Mammography 07/05/2024 11:0 6 AM EDT Impressions 07/05/2024 11:13 AM EDT FINAL IMPRESSION: No findings suspicious for malignancy. Bi-RADS: ACR BI-RADS 2: Benign RECOMMENDATIONS: Yearly screening mammography This report will serve as the order for the recommended imaging studies/procedures. At our facility, a minto marker is positioned over a visible skin lesion and a linear marker is placed over a scar. The results and recommendations were discussed with the patient on the day of her appointment. In addition, a written report in lay terms, including density notification, was given to the patient. Patient information was entered into a reminder system with a target due date for the next mammogram. Narrative 07/05/2024 11:13 AM EDT PROCEDURE: Bilateral diagnostic mammogram with Digital Breast Tomosynthesis (DBT). With focused bilateral ultrasound REASON FOR EXAM: Bilateral asymmetries noted on screening mammography 06/26/2024 FAMILY HISTORY: Weak family history of breast cancer COMPARISON STUDY: [facility] 06/26/2024, 06/21/2023, 2022 FINDINGS: Craniocaudal and mediolateral oblique images of both breasts were obtained in 2D and DBT modes. Synthesized views were reconstructed from DBT data. Focused ultrasound was then performed of the posterior lateral 3:00 position of the left breast as well as the 7 to 10:00 position of the right breast. Breast density:The breasts are heterogeneously dense, which may obscure small masses. With the additional imaging, the areas of concern on the right efface somewhat. However ultrasound was performed in confirmation and several oval cysts are seen responding to the mammographic areas of concern. Some of these have a few internal echoes consistent with minimally complicated cysts. On the left in the posterior 2:00 to 3:00 position of the original mammographic area of concern does not completely efface. Seen sonographically, are multiple cysts, likely corresponding to some of the posterior lateral areas of concern seen mammographically, the rest of which efface. This examination was reviewed with the benefit of computer aided detection (CAD). Procedure Note Ruth Momin MD - 07/05/2024 PROCEDURE: Bilateral diagnostic mammogram with Digital Breast Tomosynthesis (DBT). With focused bilateral ultrasound REASON FOR EXAM: Bilateral asymmetries noted on screening mammography 06/26/2024 FAMILY HISTORY: Weak family history of breast cancer COMPARISON STUDY: [facility] 06/26/2024, 06/21/2023, 2022 FINDINGS: Craniocaudal and mediolateral oblique images of both breasts were obtained in 2D and DBT modes. Synthesized views were reconstructed from DBT data. Focused ultrasound was then performed of the posterior lateral 3:00 position of the left breast as well as the 7 to 10:00 position of the right breast. Breast density:The breasts are heterogeneously dense, which may obscure small masses. With the additional imaging, the areas of concern on the right efface somewhat. However ultrasound was performed in confirmation and several oval cysts are seen responding to the mammographic areas of concern. Some of these have a few internal echoes consistent with minimally complicated cysts. On the left in the posterior 2:00 to 3:00 position of the original mammographic area of concern does not completely efface. Seen sonographically, are multiple cysts, likely corresponding to some of the posterior lateral areas of concern seen mammographically, the rest of which efface. This examination was reviewed with the benefit of computer aided detection (CAD). IMPRESSION: FINAL IMPRESSION: No findings suspicious for malignancy. Bi-RADS: ACR BI-RADS 2: Benign RECOMMENDATIONS: Yearly screening mammography This report will serve as the order for the recommended imaging studies/procedures. At our facility, a minto marker is positioned over a visible skin lesion and a linear marker is placed over a scar. The results and recommendations were discussed with the patient on the day of her appointment. In addition, a written report in lay terms, including density notification, was given to the patient. Patient information was entered into a reminder system with a target due date for the next mammogram. Sheridan Izaguirre MD IMG MAMMOGRAPHY ORDERABLES Final Result * (ABNORMAL) MM digital mammo screen with beatris bilateral (06/26/2024 4:31 PM EDT) Anatomical Region Laterality Modality Breast Bilateral Mammography 06/26/2024 8:55 PM EDT Impressions 06/26/2024 9:03 PM EDT New focal asymmetry right breast and new density lateral left ECA view.. BI-RADS CATEGORY: 0 INCOMPLETE: NEEDS ADDITIONAL IMAGING EVALUATION. RECOMMENDED FOLLOW-UP: Right diagnostic mammogram to include right CC and MLO spot compression ML view and possible ultrasound and left diagnostic mammogram to include left CC spot compression view, left ML view and possible left breast ultrasound. This report will stand as an order for the additional imaging evaluation. A letter including results and recommendations was sent to the patient. Density notification was provided as well. Patient information entered into a reminder system with a target due date for the next mammogram. At our facility, a minto marker is positioned over a visible skin lesion and a linear marker is used to indicate a scar. A triangular marker is placed on a self reported palpable finding. Mammography does not detect approximately 10-15% of breast cancers. An annual clinical breast exam by the patient's breast care physician and regular monthly self breast exams by the patient are integral parts of breast cancer screening. A normal mammogram does not completely exclude the presence of breast cancer, especially if there is an abnormal finding on physical exam. When clinically indicated, a biopsy should not be deferred because of a normal mammogram report. : 1975 Images reviewed, interpreted, and dictated by MD Trevon Mcdaniel 06/26/2024 9:03 PM EDT BILATERAL SCREENING DIGITAL MAMMOGRAPHY CLINICAL INDICATION: Routine screening TECHNIQUE: Bilateral CC, exaggerated CC and MLO views were obtained with 2-D and 3D digital acquisitions. The study was read with the assistance of CAD. COMPARISON: Previous studies back to March 21, 2021. FINDINGS: No suspicious mass, calcifications or architectural distortion is seen. The breasts are heterogeneously dense, which may obscure small masses. Question a new focal asymmetries central axis/9:00 right breast middle third; recommend additional evaluation. There also appears to be a new density lateral left cc view compared to other exams but this is not well seen on the MLO view. us Layo Velasco MD IMG MAMMOGRAPHY ORDERABLES Fin al Result from Last [address] [facility] Care Teams Assistant Administrator Relationship Specialty Start Date End Date Layo Velasco MD [address] [place] [id number] PCP - General Obstetrics and Gynecology 06/21/23
--- OUTSIDE RECORDS SUMMARY | 2024-09-15 11:26 | XMS_ITS | Clinical Summary ---
Author Organization Healthcare Address [address] [place] [address] Care Team Providers Care Associate Professor Of Biblical Studies Name Role Phone Mike Cronin MD Primary Care Provider [phone] Allergies Active Allergy Reactions Criticality Noted Date Comments Levofloxacin Unknown - Patient st ates they do not know rxn details Low 07/04/2020 Medications buPROPion (Wellbutrin) 100 MG tablet TAKE 1 TABLET BY MOUTH AT NIGHT FOR 1 WEEK AND THEN 1 TABLET TWICE DAILY THEREFATER Active Active Problems Problem Noted Date Diagnosed Date Acute pain of right shoulder 05/23/2021 Right rotator cuff tear 05/23/2021 Biceps tendonitis on right 05/23/2021 S/P ACL reconstruction 08/09/2020 Encounter for other orthopedic aftercare 021 Family History Medical History Relation Name Comments Hypertension Father Relation Name Status Comments Father Social History Tobacco Use Types Packs/Day Years Used Date Smoking Tobacco: Never Smokeless Tobacco: Never Comments Unknown Sex and Gender Information Value Date Recorded Sex Assigned at Not on file Legal Sex Female 7:47 PM EDT Gender Identity Not on file Sexual Orientation Not on file Last Filed Vital Signs Vital Sign Reading Time Taken Comments Blood Pressure 142/84 05/23/2021 10:57 AM EDT Pulse 88 05/23/2021 10:57 AM EDT Temperature - - Respiratory Rate - - Oxygen Saturation 99% 05/23/2021 10:57 AM EDT Inhaled Oxygen Concentration - - Weight 81.6 kg (180 lb) 05/23/2021 10:57 AM EDT Height 167.6 cm (5' 6 ) 05/23/2021 10:57 AM EDT Body Mass Index 29.05 05/23/2021 10:57 AM EDT Plan of Treatment Health Maintenance Due Date Last Done Comments [facility]-Depression Screening 1975 [facility]-Infant/Child/Adol SDOH Screenings 1976 [facility]- SDOH Screenings 1994 [facility]-Adult SDOH Screenings 1994 [facility]-Hepatitis B Vaccines (1 of 3 - 19+ 3-dose series) 08/04/1995 [facility]-Pap Smear 1997 [facility]-DTaP,Tdap,and Td Vaccine s (1 - Tdap) 01/16/2005 01/15/2005 [facility]-Cervical Cancer Screening 2006 [facility]-HPV/Cotest 2006 CT Colonography 2021 Colonoscopy 2021 FIT-DNA 2021 FIT 2021 FOBT 2021 Sigmoidoscopy 2021 [facility]-Colorectal Cancer Screening 2021 [id number] Vaccine (1 - 20 24-25 season) 2023 [facility]-Influenza Vaccine (#1) 2024 [facility]-Zoster Vaccines (1 of 2) 2026 HPV Vaccines Aged Out No longer eligi ble based on patient's age to complete this topic [facility]-HIB Vaccines Aged Out No longer e ligible based on patient's age to complete this topic [facility]-Hepatitis A Vaccines Aged Out No longer eligible based on patient's age to complete this topic [facility]-IPV Vaccines Aged Out No longer e ligible based on patient's age to complete this topic [facility]-Pneumococcal Vaccine: Pediatrics (0 to 5 Years) and At-Risk Patients (6 to 49 Years) Aged Out No long er eligible based on patient's age to complete this topic [facility]-Rotavirus Vaccines Aged Out No lo nger eligible based on patient's age to complete this topic Insurance [employer] Care Teams Associate Professor Of Biblical Studies Relationship Specialty Start Date End Date Mike Cronin MD [facility] [address] [place] [id number] PCP - General 08/09/20
--- OUTSIDE RECORDS SUMMARY | 2024-09-15 11:26 | XMS_ITS | Clinical Summary ---
Author Organization [employer] ([place], [place], [place], [place]) Address [address] [place] [address] Care Team Providers Care Prop Maker Name Role Phone Layo Velasco MD Primary Care Provider [phone] Encounters Date Type Department Care Team Description 07/05/2024 10:08 AM EDT - 07/05/2024 11:59 PM EDT Hospital Encounter [address] [phone] Sheridan Izaguirre MD Abnormal mammogram Discharge Disposition: Home or Self Care 07/05/2024 9:00 AM EDT - 07/05/2024 10:07 AM EDT Hospital Encounter [address] [phone] Sheridan Izaguirre MD Abnormal mammogram Discharge Disposition: Home or Self Care 07/05/2024 Travel 06/26/2024 4:00 PM EDT - 06/26/2024 11:59 PM EDT Hospital Encounter [address] [address] Layo Velasco MD Visit for screening mammogram (Primary Dx) Discharge Disposition: Home or Self Care 06/26/2024 Outside Orders [address] [phone] Layo Velasco MD Visit for screening mammogram (Primary Dx) 06/26/2024 Travel from Last 3 Months Family History Medical History Relation Name Comments Breast cancer Maternal Grandmother Ovarian cancer Neg Hx Relation Name Status Comments Maternal Grandmother Social History Tobacco Use Types Packs/Day Years Used Date Smoking Tobacco: Never Assessed Family and Community Support Answer Travis e Recorded Help with Day to Day Activities Not on file 02/26/2023 Feeling Lonely or Isolated Not on file 02/26 Educational Attainment Answer Date Augie rded Speak language other than Urdu at home Not on file 02/26/2023 Want [...] Info) Description 06/27/2025 4:00 PM EDT Appointment [address] [place] [phone] Health Maintenance Due Date Last Done Comments CT Colonography 1975 Colonoscopy 1976 Colorectal Cancer Screening 1976 FOBT/FIT 1976 Fit-DNA (Cologuard) 1976 Sigmoidoscopy 1976 Depression Screening (12+) 1988 Tobacco Cessation Counseling and Screening (12+) 1988 HIV Screening 08/04/1991 Hepatitis C Screening 1994 Pap Smear 1997 DTAP/TDAP/TD VACCINES (2 - Td or Tdap) 01/15/2015 01/15/2005 Lipid Panel 2021 COVID-19 VACCINE (1 - season) 2023 Influenza Vaccine (#1) 2024 Breast Cancer Screening 07/05/2026 07/06/19 25, 06/26/2024, 06/21/2023, Additional history exists Pneumococcal Vaccine: 0-49 Years Aged Out No longer eligible based on patient's age to complete this topic Procedures Procedure Name Priority Date/Time Associated Diagnosis [...] recommended imaging studies/procedures. At our facility, a cantwell marker is positioned over a visible skin [...] family history of breast cancer COMPARISON STUDY: [facility] 06/26/2024, 06/21/2023, 2022 through 2018 FINDINGS: Craniocaudal and mediolateral oblique images of [...] family history of breast cancer COMPARISON STUDY: [facility] 06/26/2024, 06/21/2023, 2022 through 2018 FINDINGS: Craniocaudal and mediolateral oblique images of [...] recommended imaging studies/procedures. At our facility, a cantwell marker is positioned over a visible skin [...] the next mammogram. us Sheridan Izaguirre MD IMG US ORDERABLES Final Result * MM digital [...] recommended imaging studies/procedures. At our facility, a cantwell marker is positioned over a visible skin [...] family history of breast cancer COMPARISON STUDY: [facility] 06/26/2024, 06/21/2023, 2022 through 2018 FINDINGS: Craniocaudal and mediolateral oblique images of [...] family history of breast cancer COMPARISON STUDY: [facility] 06/26/2024, 06/21/2023, 2022 through 2018 FINDINGS: Craniocaudal and mediolateral oblique images of [...] recommended imaging studies/procedures. At our facility, a cantwell marker is positioned over a visible skin [...] the next mammogram. At our facility, a cantwell marker is positioned over a visible skin [...] 1975 Images reviewed, interpreted, and dictated by Sheridan Izaguirre MD Narrative 06/26/2024 9:03 PM EDT BILATERAL SCREENING DIGITAL [...] al Result from Last 3 Months Insurance [place] [id number] [employer] Care Teams Prop Maker Relationship Specialty Start Date End Date Layo Velasco MD [address] [place] [id number] PCP - General Obstetrics and Gynecology 06/21/23
[2024-09-15 11:57] LABS: Hematocrit 41.2 % (37.0-47.0); Hemoglobin 13.6 g/dL (12.2-16.2); Immature Granulocytes % 0.2 %; Mean Corpuscular HGB Conc 33.0 g/dL (31.8-35.4); Mean Corpuscular Hemoglobin 30.4 pg (27.0-31.2); Mean Corpuscular Volume 92.2 fl (81-99); Nucleated Red Blood Cells % 0 %; Platelet Count 166 K/mm3 (142-424); Red Blood Count 4.47 M/mm3 (4.20-5.40); Red Cell Distribution Width-SD 43.1 fL; White Blood Count 4.2 K/mm3 (4.8-10.8)
[2024-09-15 12:16] LABS: Alanine Aminotransferase 20 U/L (12-78); Albumin Level 4.8 g/dl (3.5-5.0); Albumin/Globulin Ratio 1.5 (1.1-1.8); Alkaline Phosphatase 57 U/L (38-126); Anion Gap 9.1 mEq/L (5-15); Aspartate Amino Transferase 25 U/L (14-36); Bilirubin,Total 0.8 mg/dl (0.2-1.3); Blood Urea Nitrogen 13 mg/dl (7-17); Calcium 9.9 mg/dl (8.4-10.2); Carbon Dioxide 34 mmol/L (22.0-30.0); Chloride 101 mmol/L (98-107); Cholesterol 154 mg/dl (140-200); Creatinine,Serum 0.70 mg/dl (0.52-1.04); Estimated Glomerular Filt Rate 89 ml/min (>60); GFR (African American) 108 ML/MIN (>60); Globulin 3.2 g/dL (1.3-3.2); Glucose 91 mg/dl (74-100); HDL Cholesterol 74 mg/dl (40-60); Potassium 4.1 mmoL/L (3.5-5.1); Sodium 140 mmol/L (136-145); Total Protein,Serum 8.0 g/dl (6.3-8.2); Triglycerides 49 mg/dl (30-150)
== END 2024-09-15 23:59 | disposition home or self-care (01) ==
PROVIDERS: PCP Family Medicine; Visit Provider Nurse Practitioner Obstetrics & Gynecology
DX: Z01.419 Encounter for gynecological examination (general) (routine) without abnormal findings (principal)
CPT/HCPCS: 36415; 80053; 80061; 85025

== ENCOUNTER 2024-11-21 11:53 | Outpatient (CLI) | payer BC, OTHER, SELFPAY ==
--- OUTSIDE RECORDS SUMMARY | 2024-11-22 13:55 | XMS_ITS | Clinical Summary ---
Author Organization Healthcare Address [address] [place] [address] Care Team Providers Care Orthotic/Prosthetic Clinician Name Role Phone Mike Cronin MD Primary Care Provider [phone] Allergies Active Allergy Reactions Criticality Noted Date [...] tear 05/23/2021 Biceps tendonitis on right 05/23/2021 Encounter for other orthopedic aftercare 021 Resolved Problems Problem Noted Date Diagnosed Date Resolved Date S/P ACL reconstruction 08/09/202010/29 Family History Medical History Relation Name Comments [...] Date Last Done Comments [facility]-Depression Screening 1976 [facility]-/Child/Adol SDOH Screenings 1976 [facility]- SDOH Screenings 1994 [facility]-Adult SDOH Screenings 1994 [facility]-Hepatitis B Vaccines (1 of 3 - 19+ 3-dose series) 08/04/1995 [facility]-Pap Smear 1997 [facility]-DTaP,Tdap,and Td Vaccine s (1 - Tdap) 01/16/2005 01/15/2005 [facility]-Cervical Cancer Screening 2006 [facility]-HPV/Cotest 2006 CT Colonography 2021 Colonoscopy 2021 FIT-DNA 2021 FIT 2021 FOBT 2021 Sigmoidoscopy 2021 [facility]-Colorectal Cancer Screening 2021 [id number] Vaccine (1 - 20 24-25 season) 2024 [facility]-Influenza Vaccine (#1) 2024 [facility]-Zoster Vaccines (1 [...] patient's age to complete this topic Insurance [employer] Care Teams Orthotic/Prosthetic Clinician Relationship Specialty Start Date End Date Mike Cronin MD [facility] [address] [place] [id number] PCP - General 08/09/20
--- OUTSIDE RECORDS SUMMARY | 2024-11-22 13:55 | XMS_ITS | Referral Summary ---
Author Organization [employer] ([place], [place]) Address [address] [place] [address] Care Team Providers Care Group Manager Name Role Phone Layo Velasco MD Primary Care Provider [phone] Social History Tobacco Use Types Packs/Day Years Used Date Smoking Tobacco: Never Assessed Family and Community Support Answer Travis e Recorded Help with Day to Day Activities Not on file 02/26/2023 Feeling Lonely or Isolated Not on file 02/26 Educational Attainment Answer Date Augie rded Speak language other than Bhutanese at home Not on file 02/26/2023 Want [...] Info) Description 06/27/2025 4:00 PM EDT Appointment [address] [address] Procedures Procedure Name Priority Date/Time Associated Diagnosis Comments MM DIGITAL MAMMO DIAGNOSTIC WITH BEATRIS BILATERAL Routine 07/05/2024 9:26 AM EDT Abnormal mammogram from Last 3 Months or Most Recently Relevant to Health Maintenance Results * MM digital mammo diagnostic with beatris bilateral (07/05/2024 9:26 AM EDT) Anatomical Region Laterality Modality Breast Bilateral Mammography 07/05/2024 11:0 6 AM EDT Impressions 07/05/2024 11:13 AM EDT FINAL IMPRESSION: No findings suspicious for malignancy. Bi-RADS: ACR BI-RADS 2: Benign RECOMMENDATIONS: Yearly screening mammography This report will serve as the order for the recommended imaging studies/procedures. At our facility, a [place] marker is positioned over a visible skin [...] family history of breast cancer COMPARISON STUDY: [facility] 06/26/2024, 06/21/2023, 2022 through 2018 FINDINGS: [...] family history of breast cancer COMPARISON STUDY: [facility] 06/26/2024, 06/21/2023, 2022 through 2018 FINDINGS: [...] recommended imaging studies/procedures. At our facility, a [place] marker is positioned over a visible skin [...] for the next mammogram. Sheridan Izaguirre MD IM MAMMOGRAPHY ORDERABLES Final Result from Last 3 Months or Most Recently Relevant to Health Maintenance Insurance BLUE CROSS/BLUE SHIELD [facility] Care Teams Group Manager Relationship Specialty Start Date End Date Layo Velasco MD [address] [place] [id number] PCP - General Obstetrics and Gynecology 06/21/23
--- OUTSIDE RECORDS SUMMARY | 2024-11-22 13:56 | XMS_ITS | Encounter Summary ---
Author Organization [employer] ([place], [place], [place], [place]) Address [address] [place] [address] Care Team Providers Care Metal Fabricator Apprentice Name Role Phone Layo Velasco MD Primary Care Provider [phone] Reason for Referral * Mammography (Routine) - Authorized Specialty Diagnoses / Procedures Referred By Contac t Referred To Contact Radiology Diagnoses Visit for screening mammogram Procedures MM digital mammo screen with alfredo bilateral Layo Velasco MD [address] [facility] [address] [address] Phone: tel: fax: [facility] [address] [facility] [address] [place] [id number] Phone: tel: fax: Referral ID Status Reason Start Date Expiration Date V isits Requested Visits Authorized [id number] Authorized 06/27/2025 06/27/2026 1 1 Encounter Details Date Type Department Care Team (Late st Contact Info) Description 06/26/2024 Outside Orders [facility] [address] [facility] [address] [place] [address] Layo Velasco MD [address] [place] [address] Visit for screening mammogram (Primary Dx) Social History Tobacco Use Types Packs/Day Years Used Date Smoking Tobacco: Never Assessed Family and Community Support Answer Travis e Recorded Help with Day to Day Activities Not on file 02/26/2023 Feeling Lonely or Isolated Not on file 02/26 Educational Attainment Answer Date Augie rded Speak language other than Tajik at home Not on file 02/26/2023 Want [...] Info) Description 06/27/2025 4:00 PM EDT Appointment [address] [address] Scheduled Orders Name Type Priority Associated Diagnoses Orde r Schedule MM digital mammo screen with alfredo bilateral Imaging Routine Visit for screening mammogram Expected: 06/27/2025, Expires: 06/27/2026 documented as of this encounter Visit Diagnoses Diagnosis Visit for screening mammogram- Primary documented in this encounter Care Teams Metal Fabricator Apprentice Relationship Specialty Start Date End Date Layo Velasco MD [address] [place] [address] PCP - General Obstetrics and Gynecology 06/21/23 documented as of this encounter
--- OUTSIDE RECORDS SUMMARY | 2024-11-22 13:56 | XMS_ITS | Encounter Summary ---
Author Organization [employer] ([place], [place], [place], [place]) Address [address] [place] [address] Care Team Providers Care Racebook Writer Name Role Phone Susan Abreu RN Primary Care Provider Layo Sifuentes MD Primary Care Provider [phone] Reason for Referral * Mammography (Routine) - Closed Specialty Diagnoses / Procedures Referred By Contac t Referred To Contact Diagnoses Visit for screening mammogram Procedures MM digital mammo screen with alfredo bilateral Cesario, Provider Not In The System, [place] [address] Referral ID Status Reason Start Date Expiration Date Visits Re quested Visits Authorized [id number] Closed 03/31/2023 09/27/2023 1 1 Encounter Details Date Type Department Care Team (Late st Contact Info) Description 03/30/2022 Outside Orders [facility] [address] [facility] [address] [place] [phone] Susan Abreu, ZAIN Visit for screening [...] Info) Description 06/27/2025 4:00 PM EDT Appointment [facility] [address] [facility] [address] [place] [address] documented as of this encounter [...] the next mammogram. At our facility, a [place] marker is positioned over a visible skin [...] family history of breast cancer. COMPARISON STUDY: [facility] FINDINGS: Craniocaudal and mediolateral oblique images [...] mammogram documented in this encounter Care Teams Racebook Writer Relationship Specialty Start Date End Date Susan Abreu, ZAIN PCP - General 03/30/22 06/20/23 Layo Velasco MD [address] [place] [address] PCP - General Obstetrics and Gynecology 06/21/23 documented as of this encounter
--- OUTSIDE RECORDS SUMMARY | 2024-11-22 13:56 | XMS_ITS | Clinical Summary ---
Author Organization [employer] ([place], [place], [place], [place]) Address [address] [place] [address] Care Team Providers Care Freight Weigher Name Role Phone Layo Velasco MD Primary Care Provider [phone] Family History Medical History Relation Name Comments [...] Date Augie rded Speak language other than Lao at home Not on file 02/26/2023 Want [...] Info) Description 06/27/2025 4:00 PM EDT Appointment [address] [address] Health Maintenance Due Date Last Done Comments CT Colonography 1976 Colonoscopy 1976 Colorectal Cancer Screening 1976 FOBT/FIT 1976 Fit-DNA (Cologuard) 1976 Sigmoidoscopy 1976 Depression Screening (12+) 1988 Tobacco Cessation Counseling and Screening (12+) 1988 HIV Screening 08/04/1991 Hepatitis C Screening 1994 Pap Smear 1997 DTAP/TDAP/TD VACCINES (2 - Td or Tdap) 01/15/2015 01/15/2005 Lipid Panel 2021 COVID-19 VACCINE (1 - season) 2024 Influenza Vaccine (#1) 2024 Breast Cancer Screening 07/05/2026 07/06/19, 06/26/2024, 06/21/2023, Additional history exists Pneumococcal Vaccine: [...] recommended imaging studies/procedures. At our facility, a [place] marker is positioned over a visible skin [...] recommended imaging studies/procedures. At our facility, a [place] marker is positioned over a visible skin [...] Izaguirre MD IMG MAMMOGRAPHY ORDERABLES Final Result from Last 3 Months or Most Recently Relevant to Health Maintenance Insurance BLUE CROSS/BLUE SHIELD [facility] Care Teams Freight Weigher Relationship Specialty Start Date End Date Layo Velasco MD [address] [place] [id number] PCP - General Obstetrics and Gynecology 06/21/23
== END 2024-11-21 23:59 | disposition home or self-care (01) ==
LOC: LAB.DROPOF 11-22 13:52
PROVIDERS: PCP Nurse Practitioner Family; Visit Provider Nurse Practitioner Family
DX: M54.9 Dorsalgia, unspecified (principal)
CPT/HCPCS: 87086; 87088